=== PATIENT | male | born 1945 | race Caucasian/White ===

== ENCOUNTER 2019-01-04 17:42 | Inpatient (IN) | payer MEDICARE, OTHER ==
[2019-01-04] MEDS ORDERED: Ertapenem 1 GM in Sodium Chloride 0.9% 100 ML IV ONE (18:27)
[2019-01-04] MEDS ORDERED: Sodium Chloride 0.9% 1,000 ML IV SCH (18:30)
--- NOTE | 2019-01-04 18:33 | EDM.PDOC ---
ED HPI GENERAL MEDICAL PROBLEM - General Chief Complaint: Skin Complaint Stated Complaint: CELULITIS Time Seen by Provider: 01/04/19 18:15 Source of Information: Reports: Patient, Family History Limitations: Reports: No Limitations - History of Present Illness INITIAL COMMENTS - FREE TEXT/NARRATIVE: 73-year-old male arrives to the emergency room with a very erythematous, mildly painful weeping cellulitis of his left lower leg. He believes this started 48- 72 hours ago when he bumped his leg. He is diabetic. His glucose this morning was 45, he has not checked it since. He is running a temperature of 100.6, they went to the [facility] yesterday and on the way back he was very chilled and needed "2 " coats. He went into the [facility] and they sent him to the emergency room. He is not currently on an antibiotic. He has had problems with bilateral lower extremity edema for the past several weeks. He denies any other symptoms such as shortness of breath, chest pain, palpitations, abdominal pain, nausea or vomiting or diarrhea. Onset: Gradual Duration: Day(s): (3 days) Location: Reports: Lower Extremity, Left Associated Symptoms: Reports: Fever/Chills Left Leg Pain Score (Numeric/FACES): 6 - Related Data Allergies Allergy/AdvReac Type Severity Reaction Status Date / Time No Known Allergies Allergy Verified 01/04/19 18:02 Home Meds: Home Meds Aspirin [Ecotrin EC] 81 mg PO DAILY 01/04/19 [History] Cholestyramine/Aspartame [Prevalite Powder] 4 gm PO BID 01/04/19 [History] Dulaglutide [Trulicity] 1.5 mg SQ WEEKLY 01/04/19 [History] Fluticasone Propionate [Flonase] 16 gm NS ASDIRECTED 01/04/19 [History] Insulin Aspart [NovoLOG] 1 dose SQ TID 01/04/19 [History] Insulin Degludec [Tresiba Flextouch U-100] 55 unit SQ DAILY 01/04/19 [History] Lisinopril 10 mg PO DAILY 01/04/19 [History] Propranolol [Inderal LA 24 Hr] 60 mg PO DAILY 01/04/19 [History] Simvastatin [Zocor] 20 mg PO BEDTIME 01/04/19 [History] glipiZIDE [Glucotrol] 15 mg PO DAILY 01/04/19 [History] metFORMIN [Glucophage] 1,000 mg PO BIDMEALS 01/04/19 [History] Past Medical History HEENT History: Reports: Cataract Cardiovascular History: Reports: High Cholesterol, Hypertension Gastrointestinal History: Reports: Cholelithiasis Endocrine/Metabolic History: Reports: Diabetes, Type II Oncologic (Cancer) History: Reports: Colon Dermatologic History: Reports: Cellulitis - Past Surgical History HEENT Surgical History: Reports: Cataract Surgery GI Surgical History: Reports: Appendectomy, Cholecystectomy, Colon, Hernia Repair/Other Other GI Surgeries/Procedures: 18 inches large colon Musculoskeletal Surgical History: Reports: Hip Replacement Other Musculoskeletal Surgeries/Procedures:: right Social & Family History - Tobacco Use Smoking Status *Q: Former Smoker Used Tobacco, but Quit: Yes Month/Year Tobacco Last Used: 40 years - Caffeine Use Caffeine Use: Reports: Coffee - Recreational Drug Use Recreational Drug Use: No ED ROS GENERAL - Review of Systems Review Of Systems: See Below Constitutional: Reports: Fever, Chills. Denies: Decreased Appetite HEENT: Reports: No Symptoms Respiratory: Denies: Shortness of Breath Cardiovascular: Denies: Chest Pain GI/Abdominal: Denies: Abdominal Pain, Nausea, Vomiting : Reports: No Symptoms Neurological: Denies: Paresthesia Psychiatric: Reports: No Symptoms ED EXAM, SKIN/RASH Exam: See Below Exam Limited By: No Limitations General Appearance: Alert, No Apparent Distress, Other (Patient is chilled and uncomfortable but not distressed) Eye Exam: Bilateral Eye: EOMI (No jaundice) Head: Atraumatic Respiratory/Chest: No Respiratory Distress, Lungs Clear Cardiovascular: Regular Rate, Rhythm, Tachycardia GI/Abdominal: Soft, Non-Tender Extremities: Other (Patient is pitting edema in both lower extremities from the knee down. The left leg has extensive significant erythema with distortion of the surface of the skin, blistering, and weeping with some oozing of purulent material. There is no significant traumatic findings such as a laceration or abrasion. The erythema extends down to the foot, up to the knee and slightly on the medial aspect of the left thigh.) Psychiatric: Normal Affect, Normal Mood Course - Vital Signs Last Recorded V/S: Last Vital Signs Temp 100.8 F H 01/04/19 18:59 Pulse 100 01/04/19 18:59 Resp 18 01/04/19 18:59 BP 180/76 H 01/04/19 18:59 Pulse Ox 97 01/04/19 18:59 - Orders/Labs/Meds Orders: Active Orders 24 hr Category Date Time Status CULTURE BLOOD [BC] Urgent Lab 01/04/19 18:30 Received CULTURE BLOOD [BC] Urgent Lab 01/04/19 18:35 Received CULTURE WOUND + SMEAR [RM] Stat Lab 01/04/19 18:30 Results Blood Culture x2 Reflex Set [OM.PC] Urgent Oth 01/04/19 18:26 Ordered Medication Orders Acetaminophen (Tylenol) 650 mg PO Q4H PRN PRN Reason: Pain (Mild 1-3)/fever Aspirin (Halfprin) 81 mg PO DAILY [facility] Enoxaparin Sodium (Lovenox) 40 mg SUBCUT DAILY [facility] Hydroxyzine HCl (Atarax) 25 mg PO Q6H PRN PRN Reason: Itching Piperacillin Sod/Tazobactam (Sod 3.375 gm/ Sodium Chloride) 50 mls @ 100 mls/ hr IV Q6H [facility] Sodium Chloride (Normal Saline) 1,000 mls @ 125 mls/hr IV ASDIRECTED [facility] Last Admin: 01/04/19 22:04 Dose: 125 mls/hr Vancomycin HCl 1.5 gm/ Sodium (Chloride) 250 mls @ 150 mls/hr IV Q12H [facility] Insulin Human Lispro (Humalog) 5 unit SUBCUT TIDMEALS [facility] Insulin Human Lispro (Humalog) 0 unit SUBCUT QIDACANDBED [facility]; Protocol Lactobacillus Rhamnosus (Culturelle) 1 cap PO BID [facility] Last Admin: 01/04/19 20:51 Dose: 1 cap Lisinopril (Prinivil) 10 mg PO DAILY [facility] Lorazepam (Ativan) 0.5 mg IVPUSH Q4H PRN PRN Reason: Nausea/Vomiting Magnesium Hydroxide (Milk Of Magnesia) 30 ml PO Q12H PRN PRN Reason: Constipation Melatonin (Melatonin) 9 mg PO BEDTIME PRN PRN Reason: Sleep Metformin HCl (Glucophage) 1,000 mg PO BIDMEALS [facility] Non-Formulary Medication (Cholestyramine/Aspartame [Prevalite Powder]) 4 gm PO BID [facility] Ondansetron HCl (Zofran Odt) 4 mg PO Q6H PRN PRN Reason: Nausea able to take PO Ondansetron HCl (Zofran) 4 mg IV Q6H PRN PRN Reason: Nausea/Vomiting Propranolol HCl (Inderal La) 60 mg PO DAILY [facility] Senna/Docusate Sodium (Senna Plus) 1 tab PO BID PRN PRN Reason: Constipation Simvastatin (Zocor) 20 mg PO BEDTIME [facility] Last Admin: 01/04/19 20:51 Dose: 20 mg Labs: Laboratory Tests 01/04/19 01/04/19 01/04/19 Range/Units 18:25 18:25 18:26 WBC 6.7 (4.5-11.0) K/uL RBC 3.22 L (4.30-5.90) M/uL Hgb 10.2 L (12.0-15.0) g/dL Hct 32.2 L (40.0-54.0) % MCV 100 H (80-98) fL MCH 32 H (27-31) pg MCHC 32 (32-36) % Plt Count 93 L (150-400) K/uL Neut % (Auto) 73 H (36-66) % Lymph % (Auto) 8 L (24-44) % [place] % (Auto) 19 H (2-6) % Eos % (Auto) 1 L (2-4) % Baso % (Auto) 0 (0-1) % Sodium 133 L (140-148) mmol/L Potassium 4.6 (3.6-5.2) mmol/L Chloride 100 (100-108) mmol/L Carbon Dioxide 23 (21-32) mmol/L Anion Gap 14.6 H (5.0-14.0) mmol/L BUN 16 (7-18) mg/dL Creatinine 1.0 (0.8-1.3) mg/dL Est Cr Clr Drug Dosing 72.16 mL/min Estimated GFR (MDRD) > 60 (>60) Glucose 63 L (74-106) mg/dL Lactic Acid 1.3 (0.4-2.0) mmol/L Calcium 8.6 (8.5-10.1) mg/dL Total Bilirubin 1.5 H (0.2-1.0) mg/dL AST 79 H (15-37) U/L ALT 57 (12-78) U/L Alkaline Phosphatase 252 H (46-116) U/L Total Protein 6.8 (6.4-8.2) g/dL Albumin 2.6 L (3.4-5.0) g/dL Globulin 4.2 H (2.3-3.5) g/dL Albumin/Globulin Ratio 0.6 L (1.2-2.2) Meds: Medications Generic Name Dose Route Start Last Admin Trade Name Freq PRN Reason Stop Dose Admin Acetaminophen 650 mg 01/04/19 20:23 Tylenol PO Q4H PRN Pain (Mild 1-3)/fever Aspirin 81 mg 01/05/19 09:00 Halfprin PO DAILY [facility] Enoxaparin Sodium 40 mg 01/05/19 09:00 Lovenox SUBCUT DAILY [facility] Hydroxyzine HCl 25 mg 01/04/19 20:23 Atarax PO Q6H PRN Itching Piperacillin Sod/Tazobactam 50 mls @ 100 mls/hr 01/05/19 19:00 Sod 3.375 gm/ Sodium Chloride IV Q6H [facility] Sodium Chloride 1,000 mls @ 125 mls/hr 01/04/19 20:23 01/04/19 22:04 Normal Saline IV 125 mls/hr ASDIRECTED [facility] Administration Vancomycin HCl 1.5 gm/ Sodium 250 mls @ 150 mls/hr 01/05/19 08:00 Chloride IV Q12H [facility] Insulin Human Lispro 5 unit 01/05/19 08:00 Humalog SUBCUT TIDMEALS [facility] Insulin Human Lispro 0 unit 01/04/19 20:23 Humalog SUBCUT QIDACANDBED [facility] Protocol Lactobacillus Rhamnosus 1 cap 01/04/19 21:00 01/04/19 20:51 Culturelle PO 1 cap BID [facility] Administration Lisinopril 10 mg 01/05/19 09:00 Prinivil PO DAILY [facility] Lorazepam 0.5 mg 01/04/19 20:23 Ativan IVPUSH Q4H PRN Nausea/Vomiting Magnesium Hydroxide 30 ml 01/04/19 20:23 Milk Of Magnesia PO Q12H PRN Constipation Melatonin 9 mg 01/04/19 20:23 Melatonin PO BEDTIME PRN Sleep Metformin HCl 1,000 mg 01/05/19 08:00 Glucophage PO BIDMEALS [facility] Non-Formulary Medication 4 gm 01/04/19 21:00 Cholestyramine/Aspartame [Prevalite Powder] PO BID [facility] Ondansetron HCl 4 mg 01/04/19 20:23 Zofran Odt PO Q6H PRN Nausea able to take PO Ondansetron HCl 4 mg 01/04/19 20:23 Zofran IV Q6H PRN Nausea/Vomiting Propranolol HCl 60 mg 01/05/19 09:00 Inderal La PO DAILY [facility] Senna/Docusate Sodium 1 tab 01/04/19 20:23 Senna Plus PO BID PRN Constipation Simvastatin 20 mg 01/04/19 21:00 01/04/19 20:51 Zocor PO 20 mg BEDTIME [facility] Administration Discontinued Medications Generic Name Dose Route Start Last Admin Trade Name Freq PRN Reason Stop Dose Admin Ertapenem 1 gm/ Sodium 100 mls @ 200 mls/hr 01/04/19 18:27 01/04/19 20:50 Chloride IV 01/04/19 18:56 200 mls/hr ONETIME ONE Administration Sodium Chloride 1,000 mls @ 500 mls/hr 01/04/19 18:30 01/04/19 18:55 Normal Saline IV 500 mls/hr ASDIRECTED [facility] Administration Vancomycin HCl 1 gm/ Sodium 250 mls @ 150 mls/hr 01/04/19 18:27 01/04/19 18: 56 Chloride IV 01/04/19 20:06 150 mls/hr ONETIME ONE Administration Vancomycin HCl 1 gm/ Sodium 250 mls @ 150 mls/hr 01/04/19 19:31 Chloride IV 01/04/19 21:10 ONETIME ONE - Re-Assessments/Exams Free Text/Narrative Re-Assessment/Exam: 01/04/19 18:35 An IV was started, normal saline at 500 mL an hour was started. Patient will be treated for significant left lower leg cellulitis with possible early sepsis. Blood cultures 2 obtained, CBC CMP and lactic acid. After blood cultures, 1 g of Invanz and 1 g of vancomycin will be started. He'll likely need hospitalization by the hospitalist service. Departure - Departure Time of Disposition: 20:07 Disposition: Admitted As Inpatient 68 Clinical Impression: Cellulitis and abscess of left leg - Discharge Information - My Orders Last 24 Hours: My Active Orders 01/04/19 18:26 Blood Culture x2 Reflex Set [OM.PC] Urgent 01/04/19 18:30 CULTURE BLOOD [BC] Urgent CULTURE WOUND + SMEAR [RM] Stat 01/04/19 18:35 CULTURE BLOOD [BC] Urgent - Assessment/Plan Last 24 Hours: My Active Orders 01/04/19 18:26 Blood Culture x2 Reflex Set [OM.PC] Urgent 01/04/19 18:30 CULTURE BLOOD [BC] Urgent CULTURE WOUND + SMEAR [RM] Stat 01/04/19 18:35 CULTURE BLOOD [BC] Urgent
--- NOTE | 2019-01-04 19:44 | PCM.HP.2 ---
H&P History of Present Illness - General Date of Service: 01/04/19 Admit Problem/Dx: Admission Diagnosis/Problem Admission Diagnosis/Problem Cellulitis of left anterior lower leg Source of Information: Patient, Family, Provider History Limitations: Reports: No Limitations - History of Present Illness Initial Comments - Free Text/Narative: CC: This leg is bothering me HPI: Gabe presents to the emergency room today with left lower extremity swelling, redness and drainage. He thinks he bumped his anterior may a couple of days ago but has not had any significant pain. Yesterday morning he noticed that his left leg was a little swollen and slightly red in the morning but did not pay attention to it throughout the day. He has not had any pain in the leg. He thought it was a little bit more swollen and red this morning. This afternoon it was itchy so he had some look at and they told him to get checked out right away with concerns for cellulitis. He reports itchy skin throughout the lower leg especially anteriorly. He does not have any numbness or tingling. He has had chills that started last night but has not measured any fevers at home. He feels weak and tired but otherwise feels okay. No complaints of nausea , shortness of breath, abdominal pain or diarrhea. He has not had any sick contacts. He has never had cellulitis before. No recent antibiotics. He does not check his blood sugars regularly but did notice that it was low this morning at 45. Workup in the emergency room revealed fairly normal labs. Physical examination revealed obvious cellulitis involving almost the entire left leg below the knee. He does have an open weeping area on the anterior may that was cultured. He has received vancomycin and ertapenem. Cultures have been obtained. He is receiving some IV fluids. He will be admitted for further management. Left Leg Pain Score (Numeric/FACES): 6 - Related Data Allergies/Adverse Reactions: Allergies Allergy/AdvReac Type Severity Reaction Status Date / Time No Known Allergies Allergy Verified 01/04/19 18:02 Home Medications: Home Meds Aspirin [Ecotrin EC] 81 mg PO DAILY 01/04/19 [History] Cholestyramine/Aspartame [Prevalite Powder] 4 gm PO BID 01/04/19 [History] Dulaglutide [Trulicity] 1.5 mg SQ WEEKLY 01/04/19 [History] Fluticasone Propionate [Flonase] 16 gm NS ASDIRECTED 01/04/19 [History] Insulin Aspart [NovoLOG] 1 dose SQ TID 01/04/19 [History] Insulin Degludec [Tresiba Flextouch U-100] 55 unit SQ DAILY 01/04/19 [History] Lisinopril 10 mg PO DAILY 01/04/19 [History] Propranolol [Inderal LA 24 Hr] 60 mg PO DAILY 01/04/19 [History] Simvastatin [Zocor] 20 mg PO BEDTIME 01/04/19 [History] glipiZIDE [Glucotrol] 15 mg PO DAILY 01/04/19 [History] metFORMIN [Glucophage] 1,000 mg PO BIDMEALS 01/04/19 [History] Past Medical History HEENT History: Reports: Cataract Cardiovascular History: Reports: High Cholesterol, Hypertension Gastrointestinal History: Reports: Cholelithiasis Endocrine/Metabolic History: Reports: Diabetes, Type II Oncologic (Cancer) History: Reports: Colon Dermatologic History: Reports: Cellulitis - Past Surgical History HEENT Surgical History: Reports: Cataract Surgery GI Surgical History: Reports: Appendectomy, Cholecystectomy, Colon, Hernia Repair/Other Other GI Surgeries/Procedures: 18 inches large colon Musculoskeletal Surgical History: Reports: Hip Replacement Other Musculoskeletal Surgeries/Procedures:: right Social & Family History - Family History Cardiac: Denies: CAD - Tobacco Use Smoking Status *Q: Former Smoker Used Tobacco, but Quit: Yes Month/Year Tobacco Last Used: 40 years - Caffeine Use Caffeine Use: Reports: Coffee - Recreational Drug Use Recreational Drug Use: No H&P Review of Systems - Review of Systems: Review Of Systems: See Below Free Text/Narrative: A complete 12 point review of systems was obtained. Pertinent positives and negatives are noted in the history of present illness. All other systems were reviewed and were negative except as noted. Exam - Exam Exam: See Below - Vital Signs Vital Signs: Last Vital Signs Temp 38.2 C H 01/04/19 18:59 Pulse 100 01/04/19 18:59 Resp 18 01/04/19 18:59 BP 180/76 H 01/04/19 18:59 Pulse Ox 97 01/04/19 18:59 Weight: 113.6 kg - Exam Quality Assessment: No: Supplemental Oxygen General: Alert, Oriented, Cooperative. No: Mild Distress HEENT: Conjunctiva Clear, Mucosa Moist & [place]. No: Scleral Icterus Neck: Supple, Trachea Midline. No: Lymphadenopathy Lungs: Clear to Auscultation, Normal Respiratory Effort Cardiovascular: Regular Rate, Regular Rhythm GI/Abdominal Exam: Soft, No Distention Extremities: Pedal Edema (pitting edema bilaterally to above the knee ), Increased Warmth (left lower leg from knee distally ) Skin: Warm, Dry, Rash (erythema over most of the left lower leg from the knee distally. Small open area with surrounding weeping anterior mid may. small vesicles surrounding this area ) Neuro Extensive - Mental Status: Alert, Oriented x3, Nl Response to Commands Neuro Extensive - Motor, Sensory, Reflexes: No: Dysarthria, Abnormal Motor, Tremor Psychiatric: Alert, Normal Affect - Patient Data Lab Results Last 24 hrs: Laboratory Results - last 24 hr 01/04/19 01/04/19 01/04/19 Range/Units 18:25 18:25 18:26 WBC 6.7 (4.5-11.0) K/uL RBC 3.22 L (4.30-5.90) M/uL Hgb 10.2 L (12.0-15.0) g/dL Hct 32.2 L (40.0-54.0) % MCV 100 H (80-98) fL MCH 32 H (27-31) pg MCHC 32 (32-36) % Plt Count 93 L (150-400) K/uL Neut % (Auto) 73 H (36-66) % Lymph % (Auto) 8 L (24-44) % [place] % (Auto) 19 H (2-6) % Eos % (Auto) 1 L (2-4) % Baso % (Auto) 0 (0-1) % Sodium 133 L (140-148) mmol/L Potassium 4.6 (3.6-5.2) mmol/L Chloride 100 (100-108) mmol/L Carbon Dioxide 23 (21-32) mmol/L Anion Gap 14.6 H (5.0-14.0) mmol/L BUN 16 (7-18) mg/dL Creatinine 1.0 (0.8-1.3) mg/dL Est Cr Clr Drug Dosing 72.16 mL/min Estimated GFR (MDRD) > 60 (>60) Glucose 63 L (74-106) mg/dL Lactic Acid 1.3 (0.4-2.0) mmol/L Calcium 8.6 (8.5-10.1) mg/dL Total Bilirubin 1.5 H (0.2-1.0) mg/dL AST 79 H (15-37) U/L ALT 57 (12-78) U/L Alkaline Phosphatase 252 H (46-116) U/L Total Protein 6.8 (6.4-8.2) g/dL Albumin 2.6 L (3.4-5.0) g/dL Globulin 4.2 H (2.3-3.5) g/dL Albumin/Globulin Ratio 0.6 L (1.2-2.2) Result Diagrams: 01/04/19 18:25 01/04/19 18:25 Quoc Results Last 24 hrs: Microbiology 01/04/19 18:30 Gram Stain - Final Leg, Left *Q Meaningful Use (ADM) - VTE *Q VTE Mechanical Contraindications *Q: Bilateral Lower Edema - VTE Risk Assess *Q Each Risk Factor Represents 1 Point: Swollen Legs, Current, Obesity ( BMI > 25 kg/m2) Total Score 1 Point Risk Factors: 2 Each Risk Factor Represents 2 Points: Age 60 - 74 Years, Malignancy (present or previous) Total Score 2 Point Risk Factors: 4 Each Risk Factor Represents 3 Points: None Total Score 3 Point Risk Factors: 0 Each Risk Factor Represents 5 Points: None Total Score 5 Point Risk Factors: 0 Venous Thromboembolism Risk Factor Score *Q: 6 - Problem List (1) Cellulitis of left lower extremity SNOMED Code(s): 953288106 ICD Code: L03.116 - CELLULITIS OF LEFT LOWER LIMB Status: Acute Current Visit: Yes (2) Insulin dependent diabetes mellitus SNOMED Code(s): 68528918 ICD Code: E11.9 - TYPE 2 DIABETES MELLITUS WITHOUT COMPLICATIONS; Z79.4 - WELDER EXPLOSION (CURRENT) USE OF INSULIN Status: Chronic Current Visit: Yes (3) Hypertension SNOMED Code(s): 17949491 ICD Code: I10 - ESSENTIAL (PRIMARY) HYPERTENSION Status: Chronic Current Visit: Yes Qualifiers: Hypertension type: essential hypertension Qualified Code(s): I10 - Essential (primary) hypertension (4) Colon cancer SNOMED Code(s): 582729908 ICD Code: C18.9 - MALIGNANT NEOPLASM OF COLON, UNSPECIFIED Status: Chronic Current Visit: Yes Qualifiers: Colon location: unspecified part of colon Qualified Code(s): C18.9 - Malignant neoplasm of colon, unspecified Problem List Initiated/Reviewed/Updated: Yes Orders Last 24hrs: Active Orders 24 hr Category Date Time Status Patient Status Manage Transfer [TRANSFER] Routine ADT 01/04/19 19:32 Active CULTURE BLOOD [BC] Urgent Lab 01/04/19 18:30 Received CULTURE BLOOD [BC] Urgent Lab 01/04/19 18:35 Received CULTURE WOUND + SMEAR [RM] Stat Lab 01/04/19 18:30 Results Sodium Chloride 0.9% [Normal Saline] 1,000 ml Med 01/04/19 18:30 Active IV ASDIRECTED Vancomycin 1 gm Med 01/04/19 18:27 Active Sodium Chloride 0.9% [Normal Saline] 250 ml IV ONETIME Vancomycin 1 gm Med 01/04/19 19:31 Active Sodium Chloride 0.9% [Normal Saline] 250 ml IV ONETIME Blood Culture x2 Reflex Set [OM.PC] Urgent Oth 01/04/19 18:26 Ordered Resuscitation Status Routine Resus Stat 01/04/19 19:34 Ordered Medication Orders Sodium Chloride (Normal Saline) 1,000 mls @ 500 mls/hr IV ASDIRECTED [facility] Last Admin: 01/04/19 18:55 Dose: 500 mls/hr Vancomycin HCl 1 gm/ Sodium (Chloride) 250 mls @ 150 mls/hr IV ONETIME ONE Stop: 01/04/19 20:06 Last Admin: 01/04/19 18:56 Dose: 150 mls/hr Vancomycin HCl 1 gm/ Sodium (Chloride) 250 mls @ 150 mls/hr IV ONETIME ONE Stop: 01/04/19 21:10 Assessment/Plan Comment:: ASSESSMENT AND PLAN - Left lower extremity cellulitis - he does not meet criteria for sepsis. Fairly rapid spread over the past 36 hours. Immune compromised because of recent steroids, colon cancer treatment and diabetes. No recent antibiotics. Fairly impressive infection. He has received broad-spectrum antibiotics and cultures have been obtained. -Continue vancomycin -Start Pip/Tazo tomorrow night -Follow-up cultures -Pain control -Once heart rate has stabilized initiate diuresis to help with lower extremity edema Insulin-dependent diabetes mellitus - blood sugar was low this morning and remains low tonight. Patient is asymptomatic at 67. -Hold long-acting insulin -Mealtime insulin 5 units -Metformin -Reassess additional management tomorrow Colon cancer - last chemotherapy was about one month ago. Recently told by the oncologist that he is cancer free at this time. Essential hypertension - continue home medications Maintenance issues - - DVT prophylaxis - enoxaparin - GI prophylaxis - not indicated - Nutrition - diabetic - Brush catheter - not indicated CODE STATUS - full code Admission justification - This patient will be admitted for inpatient services and is medically appropriate meeting medical necessity for inpatient admission as outlined in my documentation. I reasonably expect the patient will require inpatient services that span a period time over 2 midnights. I reasonably expect this patient to be discharged or transferred within 96 hours after admission to the [facility]. Disposition - I would anticipate discharge home after the hospital stay Primary care physician - Sacha Cortez M.D. - Mortality Measure Prognosis:: Good
[2019-01-04] MEDS ORDERED: Ondansetron 4 MG/2 ML SDV IV PRN (20:23)
[2019-01-04] MEDS ORDERED: Magnesium Hydroxide 400 MG/5 ML Susp 30 ML Cup PO PRN (20:23)
[2019-01-04] MEDS ORDERED: Ondansetron 4 MG Tab.DIS PO PRN (20:23)
[2019-01-04] MEDS ORDERED: Melatonin 3 MG Tab PO PRN (20:23)
[2019-01-04] MEDS ORDERED: LORazepam 2 MG/ML SDV IVPUSH PRN (20:23)
[2019-01-04] MEDS ORDERED: hydrOXYzine HCl 25 MG Tab PO PRN (20:23)
[2019-01-04] MEDS: Simvastatin 20 MG Tab PO SCH (20:51)
[2019-01-04] MEDS: Lactobacillus Rhamnosus GG (Probiotic) Cap PO SCH (20:51)
[2019-01-04] MEDS ORDERED: CHOLESTYRAMINE PO SCH (21:00)
[2019-01-04] MEDS ORDERED: ASPARTAME PO SCH (21:00)
[2019-01-04] MEDS: Sodium Chloride 0.9% 1,000 ML IV SCH (22:04)
[2019-01-04] MEDS: Insulin Lispro 100 Unit/ML 3 ML KwikPen SUBCUT SCH (22:14)
[2019-01-04] MEDS: Acetaminophen 325 MG Tab PO PRN (22:22)
[2019-01-05] MEDS: Sodium Chloride 0.9% 1,000 ML IV SCH (06:37)
[2019-01-05] MEDS: Insulin Lispro 100 Unit/ML 3 ML KwikPen SUBCUT SCH ×7 (07:44→21:04)
[2019-01-05] MEDS: metFORMIN 500 MG Tab PO SCH ×2 (08:35→17:29)
[2019-01-05] MEDS: Lactobacillus Rhamnosus GG (Probiotic) Cap PO SCH ×2 (08:35→20:12)
[2019-01-05] MEDS: Lisinopril 10 MG Tab PO SCH (08:35)
[2019-01-05] MEDS: Aspirin 81 MG Tab.EC PO SCH (08:36)
[2019-01-05] MEDS: Propranolol 60 MG Cap.ER PO SCH (08:36)
[2019-01-05] MEDS ORDERED: Enoxaparin 40 MG/0.4 ML Syringe SUBCUT SCH (09:00)
--- NOTE | 2019-01-05 10:33 | PCM.PN ---
- General Info Date of Service: 01/05/19 Subjective Update: No acute events overnight following admission. No pain in his left leg. No nausea or vomiting. Leg looks much better today with less swelling and less erythema. Right leg swelling also much less today. Cultures are negative so far. Blood sugars remain on the low side despite drastic reductions in his diabetes medications. Functional Status: Reports: Pain Controlled, Tolerating Diet - Review of Systems General: Denies: Fever Musculoskeletal: Reports: Leg Pain - Patient Data Vitals - Most Recent: Last Vital Signs Temp 36.9 C 01/05/19 07:00 Pulse 84 01/05/19 07:00 Resp 16 01/05/19 07:00 BP 117/64 01/05/19 08:35 Pulse Ox 96 01/05/19 07:00 Weight - Most Recent: 114.577 kg I&O - Last 24 Hours: Intake & Output 01/04/19 01/05/19 01/05/19 22:59 06:59 14:59 Intake Total 360 1166 620 Output Total 500 1000 Balance 360 666 -380 Lab Results Last 24 Hours: Laboratory Results - last 24 hr 01/04/19 01/04/19 01/04/19 Range/Units 18:25 18:25 18:26 WBC 6.7 (4.5-11.0) K/uL RBC 3.22 L (4.30-5.90) M/uL Hgb 10.2 L (12.0-15.0) g/dL Hct 32.2 L (40.0-54.0) % MCV 100 H (80-98) fL MCH 32 H (27-31) pg MCHC 32 (32-36) % Plt Count 93 L (150-400) K/uL Neut % (Auto) 73 H (36-66) % Lymph % (Auto) 8 L (24-44) % Charlton % (Auto) 19 H (2-6) % Eos % (Auto) 1 L (2-4) % Baso % (Auto) 0 (0-1) % Sodium 133 L (140-148) mmol/L Potassium 4.6 (3.6-5.2) mmol/L Chloride 100 (100-108) mmol/L Carbon Dioxide 23 (21-32) mmol/L Anion Gap 14.6 H (5.0-14.0) mmol/L BUN 16 (7-18) mg/dL Creatinine 1.0 (0.8-1.3) mg/dL Est Cr Clr Drug Dosing 72.16 mL/min Estimated GFR (MDRD) > 60 (>60) Glucose 63 L (74-106) mg/dL Lactic Acid 1.3 (0.4-2.0) mmol/L Calcium 8.6 (8.5-10.1) mg/dL Total Bilirubin 1.5 H (0.2-1.0) mg/dL AST 79 H (15-37) U/L ALT 57 (12-78) U/L Alkaline Phosphatase 252 H (46-116) U/L Total Protein 6.8 (6.4-8.2) g/dL Albumin 2.6 L (3.4-5.0) g/dL Globulin 4.2 H (2.3-3.5) g/dL Albumin/Globulin Ratio 0.6 L (1.2-2.2) 01/05/19 01/05/19 Range/Units 04:15 04:15 WBC 4.4 L (4.5-11.0) K/uL RBC 3.09 L (4.30-5.90) M/uL Hgb 9.8 L (12.0-15.0) g/dL Hct 31.2 L (40.0-54.0) % MCV 101 H (80-98) fL MCH 32 H (27-31) pg MCHC 31 L (32-36) % Plt Count 91 L (150-400) K/uL Neut % (Auto) (36-66) % Lymph % (Auto) (24-44) % Charlton % (Auto) (2-6) % Eos % (Auto) (2-4) % Baso % (Auto) (0-1) % Sodium 137 L (140-148) mmol/L Potassium 4.3 (3.6-5.2) mmol/L Chloride 104 (100-108) mmol/L Carbon Dioxide 26 (21-32) mmol/L Anion Gap 11.3 (5.0-14.0) mmol/L BUN 15 (7-18) mg/dL Creatinine 1.0 (0.8-1.3) mg/dL Est Cr Clr Drug Dosing 72.16 mL/min Estimated GFR (MDRD) > 60 (>60) Glucose 78 (74-106) mg/dL Lactic Acid (0.4-2.0) mmol/L Calcium 8.2 L (8.5-10.1) mg/dL Total Bilirubin (0.2-1.0) mg/dL AST (15-37) U/L ALT (12-78) U/L Alkaline Phosphatase (46-116) U/L Total Protein (6.4-8.2) g/dL Albumin (3.4-5.0) g/dL Globulin (2.3-3.5) g/dL Albumin/Globulin Ratio (1.2-2.2) [facility]oc Results Last 24 Hours: Microbiology 01/04/19 18:30 Gram Stain - Final Leg, Left Med Orders - Current: Current Medications Acetaminophen (Tylenol) 650 mg PO Q4H PRN PRN Reason: Pain (Mild 1-3)/fever Last Admin: 01/04/19 22:22 Dose: 650 mg Aspirin (Halfprin) 81 mg PO DAILY [facility] Last Admin: 01/05/19 08:36 Dose: 81 mg Fluticasone Propionate (Flonase) 0 gm NASBOTH DAILY [facility] Hydroxyzine HCl (Atarax) 25 mg PO Q6H PRN PRN Reason: Itching Vancomycin HCl 1.5 gm/ Sodium (Chloride) 250 mls @ 150 mls/hr IV Q12H [facility] Last Admin: 01/05/19 08:34 Dose: 150 mls/hr Piperacillin/Tazobactam/ (Dextrose 3.375 gm/ Premix) 50 mls @ 100 mls/hr IV Q6H [facility] Sodium Chloride (Normal Saline) 1,000 mls @ 25 mls/hr IV ASDIRECTED [facility] Insulin Human Lispro (Humalog) 5 unit SUBCUT TIDMEALS [facility] Last Admin: 01/05/19 08:38 Dose: 5 units Insulin Human Lispro (Humalog) 0 unit SUBCUT QIDACANDBED [facility]; Protocol Last Admin: 01/05/19 07:44 Dose: Not Given Lactobacillus Rhamnosus (Culturelle) 1 cap PO BID [facility] Last Admin: 01/05/19 08:35 Dose: 1 cap Lisinopril (Prinivil) 10 mg PO DAILY [facility] Last Admin: 01/05/19 08:35 Dose: 10 mg Lorazepam (Ativan) 0.5 mg IVPUSH Q4H PRN PRN Reason: Nausea/Vomiting Magnesium Hydroxide (Milk Of Magnesia) 30 ml PO Q12H PRN PRN Reason: Constipation Melatonin (Melatonin) 9 mg PO BEDTIME PRN PRN Reason: Sleep Metformin HCl (Glucophage) 1,000 [facility] Last Admin: 01/05/19 08:35 Dose: 1,000 mg Non-Formulary Medication (Cholestyramine/Aspartame [Prevalite Powder]) 4 gm PO BID [facility] Ondansetron HCl (Zofran Odt) 4 mg PO Q6H PRN PRN Reason: Nausea able to take PO Ondansetron HCl (Zofran) 4 mg IV Q6H PRN PRN Reason: Nausea/Vomiting Propranolol HCl (Inderal La) 60 mg PO DAILY [facility] Last Admin: 01/05/19 08:36 Dose: 60 mg Senna/Docusate Sodium (Senna Plus) 1 tab PO BID PRN PRN Reason: Constipation Simvastatin (Zocor) 20 mg PO BEDTIME [facility] Last Admin: 01/04/19 20:51 Dose: 20 mg Discontinued Medications Enoxaparin Sodium (Lovenox) 40 mg SUBCUT DAILY [facility] Ertapenem 1 gm/ Sodium (Chloride) 100 mls @ 200 mls/hr IV ONETIME ONE Stop: 01/04/19 18:56 Last Admin: 01/04/19 20:50 Dose: 200 mls/hr Sodium Chloride (Normal Saline) 1,000 mls @ 500 mls/hr IV ASDIRECTED [facility] Last Admin: 01/04/19 18:55 Dose: 500 mls/hr Vancomycin HCl 1 gm/ Sodium (Chloride) 250 mls @ 150 mls/hr IV ONETIME ONE Stop: 01/04/19 20:06 Last Admin: 01/04/19 18:56 Dose: 150 mls/hr Vancomycin HCl 1 gm/ Sodium (Chloride) 250 mls @ 150 mls/hr IV ONETIME ONE Stop: 01/04/19 21:10 Last Admin: 01/04/19 22:15 Dose: 150 mls/hr Piperacillin Sod/Tazobactam (Sod 3.375 gm/ Sodium Chloride) 50 mls @ 100 mls/ hr IV Q6H [facility] Sodium Chloride (Normal Saline) 1,000 mls @ 125 mls/hr IV ASDIRECTED [facility] Last Admin: 01/05/19 06:37 Dose: 125 mls/hr - Exam Quality Assessment: No: Supplemental Oxygen General: Alert, Oriented, Cooperative, No Acute Distress Lungs: Normal Respiratory Effort Extremities: Pedal Edema, Increased Warmth (left lower leg) Skin: Warm, Dry, Rash (erythema and dried scab left lower leg ) Psy/Mental Status: Alert, Normal Affect - Problem List & Annotations (1) Cellulitis of left lower extremity SNOMED Code(s): 033942396 Code(s): L03.116 - CELLULITIS OF LEFT LOWER LIMB Status: Acute Current Visit: Yes (2) Insulin dependent diabetes mellitus SNOMED Code(s): 01072020 Code(s): E11.9 - TYPE 2 DIABETES MELLITUS WITHOUT COMPLICATIONS; Z79.4 - RETIREMENT (CURRENT) USE OF INSULIN Status: Chronic Current Visit: Yes (3) Hypertension SNOMED Code(s): 00273399 Code(s): I10 - ESSENTIAL (PRIMARY) HYPERTENSION Status: Chronic Current Visit: Yes Qualifiers: Hypertension type: essential hypertension Qualified Code(s): I10 - Essential (primary) hypertension (4) Colon cancer SNOMED Code(s): 525540093 Code(s): C18.9 - MALIGNANT NEOPLASM OF COLON, UNSPECIFIED Status: Chronic Current Visit: Yes Qualifiers: Colon location: unspecified part of colon Qualified Code(s): C18.9 - Malignant neoplasm of colon, unspecified - Problem List Review Problem List Initiated/Reviewed/Updated: Yes - My Orders Last 24 Hours: My Active Orders 01/04/19 19:34 Resuscitation Status Routine 01/04/19 20:23 Patient Status [ADT] Routine Communication Order [RC] PRN Communication Order [RC] PRN Diabetes Education [RC] Click to Edit Intake and Output [RC] QSHIFT Notify Provider Vital Signs [RC] ASDIRECTED Notify Provider [RC] PRN Oxygen Therapy [RC] PRN Up With Assistance [RC] ASDIRECTED Vital Signs [RC] Q4H Acetaminophen [Tylenol] 650 mg PO Q4H PRN Docusate Sodium/Sennosides [Senna Plus] 1 tab PO BID PRN Insulin Lispro [HumaLOG] See Protocol SUBCUT QIDACANDBED LORazepam [Ativan] 0.5 mg IVPUSH Q4H PRN Magnesium Hydroxide [Milk of Magnesia] 30 ml PO Q12H PRN Melatonin 9 mg PO BEDTIME PRN Ondansetron [Zofran ODT] 4 mg PO Q6H PRN Ondansetron [Zofran] 4 mg IV Q6H PRN hydrOXYzine HCl [Atarax] 25 mg PO Q6H PRN 01/04/19 21:00 Cholestyramine/Aspartame [Prevalite Powder] 4 gm PO BID Lactobacillus Rhamnosus GG [Culturelle] 1 cap PO BID Simvastatin [Zocor] 20 mg PO BEDTIME 01/05/19 08:00 Insulin Lispro [HumaLOG] 5 unit SUBCUT TIDMEALS Vancomycin 1.5 gm Sodium Chloride 0.9% [Normal Saline] 250 ml IV Q12H metFORMIN [Glucophage] 1,000 mg PO BIDMEALS 01/05/19 09:00 Aspirin [Halfprin] 81 mg PO DAILY Lisinopril [Prinivil] 10 mg PO DAILY Propranolol [Inderal LA] 60 mg PO DAILY 01/05/19 10:00 Fluticasone Propionate [Flonase] 0 gm NASBOTH DAILY 01/05/19 10:35 Sodium Chloride 0.9% [Normal Saline] 1,000 ml IV ASDIRECTED 01/05/19 11:30 GLUCOSE POC LAB TO COLLECT [POC] QIDACANDBED 01/05/19 16:30 GLUCOSE POC LAB TO COLLECT [POC] QIDACANDBED 01/05/19 18:00 Piperacillin/Tazobactam/Dext [Zosyn in Dextrose Iso-Osmotic 3.375 GM] 3.375 gm Premix Bag 1 bag IV Q6H 01/05/19 21:00 GLUCOSE POC LAB TO COLLECT [POC] QIDACANDBED 01/06/19 05:00 BASIC METABOLIC PANEL,BMP [CHEM] Timed CBC W/O DIFF,HEMOGRAM [HEME] Timed (1) 01/06/19 07:30 GLUCOSE POC LAB TO COLLECT [POC] QIDACANDBED 01/06/19 11:30 GLUCOSE POC LAB TO COLLECT [POC] QIDACANDBED 01/06/19 16:30 GLUCOSE POC LAB TO COLLECT [POC] QIDACANDBED 01/06/19 21:00 GLUCOSE POC LAB TO COLLECT [POC] QIDACANDBED 01/07/19 07:30 GLUCOSE POC LAB TO COLLECT [POC] QIDACANDBED 01/07/19 11:30 GLUCOSE POC LAB TO COLLECT [POC] QIDACANDBED 01/07/19 16:30 GLUCOSE POC LAB TO COLLECT [POC] QIDACANDBED 01/07/19 21:00 GLUCOSE POC LAB TO COLLECT [POC] QIDACANDBED 01/08/19 07:30 GLUCOSE POC LAB TO COLLECT [POC] QIDACANDBED 01/08/19 11:30 GLUCOSE POC LAB TO COLLECT [POC] QIDACANDBED 01/08/19 16:30 GLUCOSE POC LAB TO COLLECT [POC] QIDACANDBED 01/08/19 21:00 GLUCOSE POC LAB TO COLLECT [POC] QIDACANDBED 01/09/19 07:30 GLUCOSE POC LAB TO COLLECT [POC] QIDACANDBED 01/09/19 11:30 GLUCOSE POC LAB TO COLLECT [POC] QIDACANDBED 01/09/19 16:30 GLUCOSE POC LAB TO COLLECT [POC] QIDACANDBED 01/09/19 21:00 GLUCOSE POC LAB TO COLLECT [POC] QIDACANDBED 01/10/19 07:30 GLUCOSE POC LAB TO COLLECT [POC] QIDACANDBED - Plan Plan:: ASSESSMENT AND PLAN - Left lower extremity cellulitis - excellent improvement overnight with antibiotics and some IV fluids. Swelling and redness have decreased significantly. No fevers overnight. Clinically looks better today. Cultures negative so far. -Continue vancomycin -Start Pip/Tazo tonight -Follow-up cultures -Pain control -Consider diuresis tomorrow Insulin-dependent diabetes mellitus - blood sugar still low this morning despite drastic reductions. -Continue to hold long-acting insulin -Mealtime insulin 5 units -Metformin -Reassess additional management tomorrow Colon cancer - last chemotherapy was about one month ago. Recently told by the oncologist that he is cancer free at this time. Essential hypertension - continue home medications Maintenance issues - - DVT prophylaxis - enoxaparin - GI prophylaxis - not indicated - Nutrition - diabetic Disposition - I would anticipate discharge home after the hospital stay Primary care physician - [place], [place] Wilfrido Hagen M.D.
[2019-01-05] MEDS ORDERED: Sodium Chloride 0.9% 1,000 ML IV SCH (10:35)
[2019-01-05] MEDS: Fluticasone Propionate Nasal Spray 16 GM Bottle NASBOTH SCH (11:45)
[2019-01-05] MEDS: Piperacillin/Tazobactam/Dext 3.375 GM in Premix Bag 1 BAG IV SCH (17:35)
[2019-01-05] MEDS ORDERED: Piperacillin/Tazobactam 3.375 GM in Sodium Chloride 0.9% 50 ML IV SCH (19:00)
[2019-01-05] MEDS: Cholestyramine/Sucrose Powder 4 GM Packet PO SCH (20:12)
[2019-01-05] MEDS: Simvastatin 20 MG Tab PO SCH (20:12)
[2019-01-05] MEDS: Acetaminophen 325 MG Tab PO PRN (20:22)
[2019-01-06] MEDS: Piperacillin/Tazobactam/Dext 3.375 GM in Premix Bag 1 BAG IV SCH ×2 (00:10→07:27)
[2019-01-06] MEDS: Insulin Lispro 100 Unit/ML 3 ML KwikPen SUBCUT SCH ×7 (07:47→20:46)
[2019-01-06] MEDS: metFORMIN 500 MG Tab PO SCH ×2 (07:48→18:07)
[2019-01-06] MEDS: Lactobacillus Rhamnosus GG (Probiotic) Cap PO SCH ×2 (08:56→20:24)
[2019-01-06] MEDS: Fluticasone Propionate Nasal Spray 16 GM Bottle NASBOTH SCH (08:56)
[2019-01-06] MEDS: Aspirin 81 MG Tab.EC PO SCH (08:56)
[2019-01-06] MEDS: Lisinopril 10 MG Tab PO SCH (08:56)
[2019-01-06] MEDS: Cholestyramine/Sucrose Powder 4 GM Packet PO SCH ×2 (08:57→20:24)
[2019-01-06] MEDS: Propranolol 60 MG Cap.ER PO SCH (08:57)
--- NOTE | 2019-01-06 11:30 | PCM.PN ---
- General Info Date of Service: 01/06/19 Subjective Update: There were no acute events overnight. This morning the patient was noted to have a few areas of macular rash on his inner thighs and lower abdomen. This developed around the time he was due for his next antibiotic and initially there was some concern this may be a drug reaction so the antibiotic was held. His rash has improved fairly quickly. I do not believe this represented a antibiotic reaction. His leg is looking better but still has a fair amount of erythema and mild warmth. His wound culture is growing a staph species but identification is not complete as of yet. Functional Status: Reports: Pain Controlled, Tolerating Diet - Review of Systems General: Denies: Fever Musculoskeletal: Reports: Leg Pain Skin: Reports: Rash, Other (mild patchy macules on inner thighs ) - Patient Data Vitals - Most Recent: Last Vital Signs Temp 36.2 C 01/06/19 07:40 Pulse 85 01/06/19 07:40 Resp 16 01/06/19 07:40 BP 128/47 L 01/06/19 08:56 Pulse Ox 96 01/06/19 07:40 Weight - Most Recent: 114.577 kg I&O - Last 24 Hours: Intake & Output 01/05/19 01/06/19 01/06/19 22:59 06:59 14:59 Intake Total 359 274 990 Output Total 950 1200 Balance -591 926 990 Lab Results Last 24 Hours: Laboratory Results - last 24 hr 01/06/19 01/06/19 Range/Units 04:40 04:40 WBC 4.6 (4.5-11.0) K/uL RBC 3.35 L (4.30-5.90) M/uL Hgb 10.6 L (12.0-15.0) g/dL Hct 33.4 L (40.0-54.0) % MCV 100 H (80-98) fL MCH 32 H (27-31) pg MCHC 32 (32-36) % Plt Count 96 L (150-400) K/uL Sodium 135 L (140-148) mmol/L Potassium 4.6 (3.6-5.2) mmol/L Chloride 103 (100-108) mmol/L Carbon Dioxide 25 (21-32) mmol/L Anion Gap 11.6 (5.0-14.0) mmol/L BUN 15 (7-18) mg/dL Creatinine 0.9 (0.8-1.3) mg/dL Est Cr Clr Drug Dosing 80.18 mL/min Estimated GFR (MDRD) > 60 (>60) Glucose 107 H (74-106) mg/dL Calcium 8.7 (8.5-10.1) mg/dL [facility] Results Last 24 Hours: Microbiology 01/04/19 18:30 Gram Stain - Final Leg, Left Wound Culture - Preliminary 01/04/19 18:30 Aerobic Blood Culture - Preliminary Blood - Venous - Iv Start NO GROWTH AFTER 1 DAY Anaerobic Blood Culture - Preliminary NO GROWTH AFTER 1 DAY 01/04/19 18:35 Aerobic Blood Culture - Preliminary Blood - Venous - Iv Start NO GROWTH AFTER 1 DAY Anaerobic Blood Culture - Preliminary NO GROWTH AFTER 1 DAY Med Orders - Current: Current Medications Acetaminophen (Tylenol) 650 mg PO Q4H PRN PRN Reason: Pain (Mild 1-3)/fever Last Admin: 01/05/19 20:22 Dose: 650 mg Aspirin (Halfprin) 81 mg PO DAILY [facility] Last Admin: 01/06/19 08:56 Dose: 81 mg Cholestyramine Resin (Cholestyramine Packet) 4 gm PO BID [facility] Last Admin: 01/06/19 08:57 Dose: 4 gm Fluticasone Propionate (Flonase) 0 gm NASBOTH DAILY [facility] Last Admin: 01/06/19 08:56 Dose: 1 spray Hydroxyzine HCl (Atarax) 25 mg PO Q6H PRN PRN Reason: Itching Last Admin: 01/06/19 05:07 Dose: 25 mg Vancomycin HCl 1.5 gm/ Sodium (Chloride) 250 mls @ 150 mls/hr IV Q12H [facility] Last Admin: 01/06/19 08:57 Dose: 150 mls/hr Insulin Human Lispro (Humalog) 5 unit SUBCUT TIDMEALS [facility] Last Admin: 01/06/19 07:49 Dose: 5 units Insulin Human Lispro (Humalog) 0 unit SUBCUT QIDACANDBED [facility]; Protocol Last Admin: 01/06/19 07:47 Dose: Not Given Lactobacillus Rhamnosus (Culturelle) 1 cap PO BID [facility] Last Admin: 01/06/19 08:56 Dose: 1 cap Lisinopril (Prinivil) 10 mg PO DAILY [facility] Last Admin: 01/06/19 08:56 Dose: 10 mg Lorazepam (Ativan) 0.5 mg IVPUSH Q4H PRN PRN Reason: Nausea/Vomiting Magnesium Hydroxide (Milk Of Magnesia) 30 ml PO Q12H PRN PRN Reason: Constipation Melatonin (Melatonin) 9 mg PO BEDTIME PRN PRN Reason: Sleep Metformin HCl (Glucophage) 1,000 mg PO BIDMEALS [facility] Last Admin: 01/06/19 07:48 Dose: 1,000 mg Ondansetron HCl (Zofran Odt) 4 mg PO Q6H PRN PRN Reason: Nausea able to take PO Ondansetron HCl (Zofran) 4 mg IV Q6H PRN PRN Reason: Nausea/Vomiting Propranolol HCl (Inderal La) 60 mg PO DAILY [facility] Last Admin: 01/06/19 08:57 Dose: 60 mg Senna/Docusate Sodium (Senna Plus) 1 tab PO BID PRN PRN Reason: Constipation Simvastatin (Zocor) 20 mg PO BEDTIME [facility] Last Admin: 01/05/19 20:12 Dose: 20 mg Discontinued Medications Enoxaparin Sodium (Lovenox) 40 mg SUBCUT DAILY [facility] Last Admin: 01/05/19 10:56 Dose: Not Given Ertapenem 1 gm/ Sodium (Chloride) 100 mls @ 200 mls/hr IV ONETIME ONE Stop: 01/04/19 18:56 Last Admin: 01/04/19 20:50 Dose: 200 mls/hr Sodium Chloride (Normal Saline) 1,000 mls @ 500 mls/hr IV ASDIRECTED [facility] Last Admin: 01/04/19 18:55 Dose: 500 mls/hr Vancomycin HCl 1 gm/ Sodium (Chloride) 250 mls @ 150 mls/hr IV ONETIME ONE Stop: 01/04/19 20:06 Last Admin: 01/04/19 18:56 Dose: 150 mls/hr Vancomycin HCl 1 gm/ Sodium (Chloride) 250 mls @ 150 mls/hr IV ONETIME ONE Stop: 01/04/19 21:10 Last Admin: 01/04/19 22:15 Dose: 150 mls/hr Piperacillin Sod/Tazobactam (Sod 3.375 gm/ Sodium Chloride) 50 mls @ 100 mls/ hr IV Q6H [facility] Sodium Chloride (Normal Saline) 1,000 mls @ 125 mls/hr IV ASDIRECTED [facility] Last Admin: 01/05/19 06:37 Dose: 125 mls/hr Piperacillin/Tazobactam/ (Dextrose 3.375 gm/ Premix) 50 mls @ 100 mls/hr IV Q6H [facility] Last Admin: 01/06/19 07:27 Dose: Not Given Sodium Chloride (Normal Saline) 1,000 mls @ 25 mls/hr IV ASDIRECTED [facility] Last Admin: 01/06/19 07:53 Dose: 25 mls/hr - Exam Quality Assessment: No: Supplemental Oxygen General: Alert, Oriented, Cooperative, No Acute Distress Lungs: Normal Respiratory Effort Cardiovascular: Regular Rate, Regular Rhythm GI/Abdominal Exam: Soft, No Distention Extremities: Pedal Edema (Mild edema of both feet), Increased Warmth (Left anterior may) Skin: Warm, Dry, Rash (Deep red erythema over the anterior left may with mild drainage from the middle of the erythema. There is no fluctuance. The area of erythema as well within the marked borders and slowly improving) Psy/Mental Status: Alert, Normal Affect - Problem List & Annotations (1) Cellulitis of left lower extremity SNOMED Code(s): 642221021 Code(s): L03.116 - CELLULITIS OF LEFT LOWER LIMB Status: Acute Current Visit: Yes (2) Insulin dependent diabetes mellitus SNOMED Code(s): 28687656 Code(s): E11.9 - TYPE 2 DIABETES MELLITUS WITHOUT COMPLICATIONS; Z79.4 - DETENTION (CURRENT) USE OF INSULIN Status: Chronic Current Visit: Yes (3) Hypertension SNOMED Code(s): 40539159 Code(s): I10 - ESSENTIAL (PRIMARY) HYPERTENSION Status: Chronic Current Visit: Yes Qualifiers: Hypertension type: essential hypertension Qualified Code(s): I10 - Essential (primary) hypertension (4) Colon cancer SNOMED Code(s): 755508066 Code(s): C18.9 - MALIGNANT NEOPLASM OF COLON, UNSPECIFIED Status: Chronic Current Visit: Yes Qualifiers: Colon location: unspecified part of colon Qualified Code(s): C18.9 - Malignant neoplasm of colon, unspecified - Problem List Review Problem List Initiated/Reviewed/Updated: Yes - My Orders Last 24 Hours: My Active Orders 01/05/19 21:00 Cholestyramine/Sucrose [Cholestyramine Packet] 4 gm PO BID 01/06/19 11:28 Convert IV to Saline Lock [OM.PC] Routine 01/06/19 11:30 cefTAZidime Pentahydrate [Fortaz] 1 gm Sodium Chloride 0.9% [Normal Saline] 50 ml IV Q8H 01/06/19 16:30 GLUCOSE POC LAB TO COLLECT [POC] QIDACANDBED 01/06/19 21:00 GLUCOSE POC LAB TO COLLECT [POC] QIDACANDBED 01/07/19 05:00 BASIC METABOLIC PANEL,BMP [CHEM] Timed CBC W/O DIFF,HEMOGRAM [HEME] Timed (1) 01/07/19 07:30 GLUCOSE POC LAB TO COLLECT [POC] QIDACANDBED 01/07/19 11:30 GLUCOSE POC LAB TO COLLECT [POC] QIDACANDBED 01/07/19 16:30 GLUCOSE POC LAB TO COLLECT [POC] QIDACANDBED 01/07/19 21:00 GLUCOSE POC LAB TO COLLECT [POC] QIDACANDBED 01/08/19 07:30 GLUCOSE POC LAB TO COLLECT [POC] QIDACANDBED 01/08/19 11:30 GLUCOSE POC LAB TO COLLECT [POC] QIDACANDBED 01/08/19 16:30 GLUCOSE POC LAB TO COLLECT [POC] QIDACANDBED 01/08/19 21:00 GLUCOSE POC LAB TO COLLECT [POC] QIDACANDBED 01/09/19 07:30 GLUCOSE POC LAB TO COLLECT [POC] QIDACANDBED 01/09/19 11:30 GLUCOSE POC LAB TO COLLECT [POC] QIDACANDBED 01/09/19 16:30 GLUCOSE POC LAB TO COLLECT [POC] QIDACANDBED 01/09/19 21:00 GLUCOSE POC LAB TO COLLECT [POC] QIDACANDBED 01/10/19 07:30 GLUCOSE POC LAB TO COLLECT [POC] QIDACANDBED - Plan Plan:: ASSESSMENT AND PLAN - Left lower extremity cellulitis - ongoing improvement but still a fair amount of erythema. No fevers. Cultures growing a staph species but final identification and sensitivities are pending. We did switch anabiotics though I do not believe he had an actual reaction to the Zosyn. -Continue vancomycin -Change antibiotics to ceftazidime -Follow-up cultures -Pain control -Trial of diuresis today Insulin-dependent diabetes mellitus - blood sugar are much better with the drastic reductions in his home regimen -Continue to hold long-acting insulin and glipizide -Mealtime insulin 5 units -Metformin -Reassess additional management again tomorrow Colon cancer - last chemotherapy was about one month ago. Recently told by the oncologist that he is cancer free at this time. Essential hypertension - continue home medications Maintenance issues - - DVT prophylaxis - enoxaparin - GI prophylaxis - not indicated - Nutrition - diabetic Disposition - I would anticipate discharge home after the hospital stay Primary care physician - [place], [place] Wilfrido Hagen M.D.
[2019-01-06] MEDS ORDERED: Furosemide 40 MG Tab PO ONE (13:05)
[2019-01-06] MEDS: Simvastatin 20 MG Tab PO SCH (20:24)
[2019-01-06] MEDS: Acetaminophen 325 MG Tab PO PRN (20:50)
[2019-01-07] MEDS: Insulin Lispro 100 Unit/ML 3 ML KwikPen SUBCUT SCH ×7 (07:58→21:10)
[2019-01-07] MEDS: metFORMIN 500 MG Tab PO SCH ×2 (08:09→17:25)
[2019-01-07] MEDS: Fluticasone Propionate Nasal Spray 16 GM Bottle NASBOTH SCH (08:10)
[2019-01-07] MEDS: Propranolol 60 MG Cap.ER PO SCH (08:11)
[2019-01-07] MEDS: Lactobacillus Rhamnosus GG (Probiotic) Cap PO SCH ×2 (08:11→20:42)
[2019-01-07] MEDS: Lisinopril 10 MG Tab PO SCH (08:11)
[2019-01-07] MEDS: Cholestyramine/Sucrose Powder 4 GM Packet PO SCH ×2 (08:11→20:42)
[2019-01-07] MEDS: Aspirin 81 MG Tab.EC PO SCH (08:11)
--- NOTE | 2019-01-07 12:58 | PCM.PN ---
- General Info Date of Service: 01/07/19 Subjective Update: Mr. Gong has remained stable since yesterday with no significant temperature elevation, vital signs have been stable. He has persistent erythema especially over the anterior aspect of the left lower leg. - Review of Systems General: Reports: Weakness. Denies: Fever, Chills Pulmonary: Reports: No Symptoms Cardiovascular: Reports: No Symptoms Gastrointestinal: Reports: No Symptoms Musculoskeletal: Reports: Leg Pain Skin: Reports: Other (Erythema lower leg) - Patient Data Vitals - Most Recent: Last Vital Signs Temp 97.2 F 01/07/19 11:43 Pulse 78 01/07/19 11:43 Resp 18 01/07/19 11:43 BP 134/53 L 01/07/19 11:43 Pulse Ox 100 01/07/19 11:43 Weight - Most Recent: 252 lb 9.6 oz I&O - Last 24 Hours: Intake & Output 01/06/19 01/07/19 01/07/19 22:59 06:59 14:59 Intake Total 250 55 890 Output Total 2716 252 3946 Balance -3040 -375 210 Lab Results Last 24 Hours: Laboratory Results - last 24 hr 01/07/19 01/07/19 01/07/19 Range/Units 07:58 07:58 07:58 WBC 4.0 L (4.5-11.0) K/uL RBC 3.16 L (4.30-5.90) M/uL Hgb 9.8 L (12.0-15.0) g/dL Hct 31.8 L (40.0-54.0) % MCV 101 H (80-98) fL MCH 31 (27-31) pg MCHC 31 L (32-36) % Plt Count 90 L (150-400) K/uL Sodium 138 L (140-148) mmol/L Potassium 5.0 (3.6-5.2) mmol/L Chloride 106 (100-108) mmol/L Carbon Dioxide 23 (21-32) mmol/L Anion Gap 14.0 (5.0-14.0) mmol/L BUN 14 (7-18) mg/dL Creatinine 1.0 (0.8-1.3) mg/dL Est Cr Clr Drug Dosing 72.16 mL/min Estimated GFR (MDRD) > 60 (>60) Glucose 117 H (74-106) mg/dL Calcium 8.8 (8.5-10.1) mg/dL Vancomycin Trough 22.5 H (10.0-20.0) ug/mL [place] Results Last 24 Hours: Microbiology 01/04/19 18:30 Gram Stain - Final Leg, Left Wound Culture - Final Staphylococcus Aureus 01/04/19 18:30 Aerobic Blood Culture - Preliminary Blood - Venous - Iv Start NO GROWTH AFTER 2 DAYS Anaerobic Blood Culture - Preliminary NO GROWTH AFTER 2 DAYS 01/04/19 18:35 Aerobic Blood Culture - Preliminary Blood - Venous - Iv Start NO GROWTH AFTER 2 DAYS Anaerobic Blood Culture - Preliminary NO GROWTH AFTER 2 DAYS Med Orders - Current: Current Medications Acetaminophen (Tylenol) 650 mg PO Q4H PRN PRN Reason: Pain (Mild 1-3)/fever Last Admin: 01/06/19 20:50 Dose: 650 mg Aspirin (Halfprin) 81 mg PO DAILY [facility] Last Admin: 01/07/19 08:11 Dose: 81 mg Cholestyramine Resin (Cholestyramine Packet) 4 gm PO BID [facility] Last Admin: 01/07/19 08:11 Dose: 4 gm Fluticasone Propionate (Flonase) 0 gm NASBOTH DAILY [facility] Last Admin: 01/07/19 08:10 Dose: 1 spray Hydroxyzine HCl (Atarax) 25 mg PO Q6H PRN PRN Reason: Itching Last Admin: 01/06/19 05:07 Dose: 25 mg Ceftazidime 1 gm/ Sodium (Chloride) 50 mls @ 100 mls/hr IV Q8H [facility] Last Admin: 01/07/19 12:52 Dose: 100 mls/hr Vancomycin HCl 1.5 gm/ Sodium (Chloride) 250 mls @ 150 mls/hr IV Q18H [facility] Insulin Human Lispro (Humalog) 5 unit SUBCUT TIDMEALS [facility] Last Admin: 01/07/19 12:14 Dose: 5 units Insulin Human Lispro (Humalog) 0 unit SUBCUT QIDACANDBED [facility]; Protocol Last Admin: 01/07/19 12:14 Dose: 1 unit Lactobacillus Rhamnosus (Culturelle) 1 cap PO BID [facility] Last Admin: 01/07/19 08:11 Dose: 1 cap Lisinopril (Prinivil) 10 mg PO DAILY [facility] Last Admin: 01/07/19 08:11 Dose: 10 mg Lorazepam (Ativan) 0.5 mg IVPUSH Q4H PRN PRN Reason: Nausea/Vomiting Magnesium Hydroxide (Milk Of Magnesia) 30 ml PO Q12H PRN PRN Reason: Constipation Melatonin (Melatonin) 9 mg PO BEDTIME PRN PRN Reason: Sleep Metformin HCl (Glucophage) 1,000 mg PO BIDMEALS [facility] Last Admin: 01/07/19 08:09 Dose: 1,000 mg Ondansetron HCl (Zofran Odt) 4 mg PO Q6H PRN PRN Reason: Nausea able to take PO Ondansetron HCl (Zofran) 4 mg IV Q6H PRN PRN Reason: Nausea/Vomiting Propranolol HCl (Inderal La) 60 mg PO DAILY [facility] Last Admin: 01/07/19 08:11 Dose: 60 mg Senna/Docusate Sodium (Senna Plus) 1 tab PO BID PRN PRN Reason: Constipation Simvastatin (Zocor) 20 mg PO BEDTIME [facility] Last Admin: 01/06/19 20:24 Dose: 20 mg Discontinued Medications Enoxaparin Sodium (Lovenox) 40 mg SUBCUT DAILY [facility] Last Admin: 01/05/19 10:56 Dose: Not Given Furosemide (Lasix) 40 mg PO ONETIME ONE Stop: 01/06/19 13:06 Last Admin: 01/06/19 13:25 Dose: 40 mg Ertapenem 1 gm/ Sodium (Chloride) 100 mls @ 200 mls/hr IV ONETIME ONE Stop: 01/04/19 18:56 Last Admin: 01/04/19 20:50 Dose: 200 mls/hr Sodium Chloride (Normal Saline) 1,000 mls @ 500 mls/hr IV ASDIRECTED [facility] Last Admin: 01/04/19 18:55 Dose: 500 mls/hr Vancomycin HCl 1 gm/ Sodium (Chloride) 250 mls @ 150 mls/hr IV ONETIME ONE Stop: 01/04/19 20:06 Last Admin: 01/04/19 18:56 Dose: 150 mls/hr Vancomycin HCl 1 gm/ Sodium (Chloride) 250 mls @ 150 mls/hr IV ONETIME ONE Stop: 01/04/19 21:10 Last Admin: 01/04/19 22:15 Dose: 150 mls/hr Piperacillin Sod/Tazobactam (Sod 3.375 gm/ Sodium Chloride) 50 mls @ 100 mls/ hr IV Q6H [facility] Sodium Chloride (Normal Saline) 1,000 mls @ 125 mls/hr IV ASDIRECTED [facility] Last Admin: 01/05/19 06:37 Dose: 125 mls/hr Vancomycin HCl 1.5 gm/ Sodium (Chloride) 250 mls @ 150 mls/hr IV Q12H [facility] Last Admin: 01/06/19 20:20 Dose: 150 mls/hr Piperacillin/Tazobactam/ (Dextrose 3.375 gm/ Premix) 50 mls @ 100 mls/hr IV Q6H [facility] Last Admin: 01/06/19 07:27 Dose: Not Given Sodium Chloride (Normal Saline) 1,000 mls @ 25 mls/hr IV ASDIRECTED [facility] Last Admin: 01/06/19 07:53 Dose: 25 mls/hr - Exam Quality Assessment: DVT Prophylaxis General: Alert, Oriented, Cooperative, Mild Distress Lungs: Clear to Auscultation, Normal Respiratory Effort Cardiovascular: Regular Rate, Regular Rhythm, No Murmurs GI/Abdominal Exam: Soft, Non-Tender, No Organomegaly, No Distention Extremities: Increased Warmth, Redness - Problem List Review Problem List Initiated/Reviewed/Updated: Yes - My Orders Last 24 Hours: My Active Orders 01/07/19 11:31 Extremity Non Vascular Lt [US] Urgent 01/08/19 05:00 CBC WITH AUTO DIFF [HEME] Timed - Plan Plan:: ASSESSMENT AND PLAN - Left lower extremity cellulitis - ongoing improvement but still a fair amount of erythema. Cultures have grown out staph aureus, methicillin sensitive -Continue vancomycin and ceftazidime -Ultrasound left lower leg to evaluate for abscess -Pain control -Trial of diuresis today Insulin-dependent diabetes mellitus - blood sugar are much better with the drastic reductions in his home regimen. Glucose levels have remained stable over the last 24 hours -Continue to hold long-acting insulin and glipizide -Mealtime insulin 5 units -Metformin -Reassess additional management again tomorrow Colon cancer - last chemotherapy was about one month ago. Recently told by the oncologist that he is cancer free at this time. Essential hypertension - continue home medications Maintenance issues - - DVT prophylaxis - enoxaparin - GI prophylaxis - not indicated - Nutrition - diabetic Disposition - I would anticipate discharge home after the hospital stay Primary care physician - [place], [place]
[2019-01-07] MEDS: Albuterol 0.083% 2.5 MG/3 ML Neb Soln NEB PRN ×2 (16:05→20:56)
--- NOTE | 2019-01-07 16:11 | CRLUS ---
INDICATION: Left redness and swelling. Evaluate for abscess with associated cellulitis TECHNIQUE: Sonogram of the left mid and lower calf in the region of clinical concern. FINDINGS: Sonogram of the left mid and lower calf in the region of clinical concern demonstrates moderate edema in the subcutaneous and soft tissues consistent with the known cellulitis. No discrete drainable fluid collection to suggest abscess. Remainder negative. IMPRESSION: Sonogram of the left mid and lower calf in the region of clinical concern demonstrates moderate subcutaneous soft tissue edema consistent with the known cellulitis without a definable abscess. Dictated by Macho Zuñiga MD @ Jan 07 2019 4:08PM Signed by Dr. Macho Zuñiga @ Jan 07 2019 4:10PM
[2019-01-07] MEDS ORDERED: Furosemide 40 MG/4 ML VIAL IVPUSH ONE (16:59)
[2019-01-07] MEDS: Acetaminophen 325 MG Tab PO PRN (20:42)
[2019-01-07] MEDS: Simvastatin 20 MG Tab PO SCH (20:42)
[2019-01-08] MEDS: Insulin Lispro 100 Unit/ML 3 ML KwikPen SUBCUT SCH ×7 (08:31→21:10)
[2019-01-08] MEDS: Propranolol 60 MG Cap.ER PO SCH (08:32)
[2019-01-08] MEDS: Fluticasone Propionate Nasal Spray 16 GM Bottle NASBOTH SCH (08:32)
[2019-01-08] MEDS: metFORMIN 500 MG Tab PO SCH ×2 (08:33→17:35)
[2019-01-08] MEDS: Aspirin 81 MG Tab.EC PO SCH (08:33)
[2019-01-08] MEDS: Lisinopril 10 MG Tab PO SCH (08:33)
[2019-01-08] MEDS: Lactobacillus Rhamnosus GG (Probiotic) Cap PO SCH ×2 (08:33→20:17)
[2019-01-08] MEDS: Cholestyramine/Sucrose Powder 4 GM Packet PO SCH ×2 (08:34→20:17)
[2019-01-08] MEDS: Albuterol 0.083% 2.5 MG/3 ML Neb Soln NEB PRN ×2 (09:38→15:53)
[2019-01-08] MEDS ORDERED: Furosemide 40 MG/4 ML VIAL IVPUSH ONE (12:23)
--- NOTE | 2019-01-08 12:29 | PCM.PN ---
- General Info Date of Service: 01/08/19 Subjective Update: Mr. Gong has noted further improvement in the cellulitis since yesterday and significant decrease in edema. Vital signs have remained stable and he has been afebrile. Functional Status: Reports: Tolerating Diet, Ambulating, Urinating - Review of Systems General: Reports: Weakness. Denies: Fever, Chills Cardiovascular: Reports: No Symptoms Gastrointestinal: Reports: No Symptoms Genitourinary: Reports: No Symptoms Skin: Reports: Other (Persistent erythema anterior aspect left lower leg) - Patient Data Vitals - Most Recent: Last Vital Signs Temp 98.4 F 01/08/19 11:00 Pulse 96 01/08/19 11:00 Resp 18 01/08/19 11:00 BP 134/69 01/08/19 11:00 Pulse Ox 95 01/08/19 11:00 Weight - Most Recent: 252 lb 9.585 oz I&O - Last 24 Hours: Intake & Output 01/07/19 01/08/19 01/08/19 22:59 06:59 14:59 Intake Total 290 730 Output Total 3050 525 350 Balance -2760 -525 380 Lab Results Last 24 Hours: Laboratory Results - last 24 hr 01/08/19 Range/Units 04:15 WBC 3.4 L (4.5-11.0) K/uL RBC 3.04 L (4.30-5.90) M/uL Hgb 9.6 L (12.0-15.0) g/dL Hct 30.4 L (40.0-54.0) % MCV 100 H (80-98) fL MCH 32 H (27-31) pg MCHC 32 (32-36) % Plt Count 86 L (150-400) K/uL Neut % (Auto) 61 (36-66) % Lymph % (Auto) 21 L (24-44) % [place] % (Auto) 16 H (2-6) % Eos % (Auto) 2 (2-4) % Baso % (Auto) 0 (0-1) % [place] Results Last 24 Hours: Microbiology 01/04/19 18:30 Aerobic Blood Culture - Preliminary Blood - Venous - Iv Start NO GROWTH AFTER 3 DAYS Anaerobic Blood Culture - Preliminary NO GROWTH AFTER 3 DAYS 01/04/19 18:35 Aerobic Blood Culture - Preliminary Blood - Venous - Iv Start NO GROWTH AFTER 3 DAYS Anaerobic Blood Culture - Preliminary NO GROWTH AFTER 3 DAYS Med Orders - Current: Current Medications Acetaminophen (Tylenol) 650 mg PO Q4H PRN PRN Reason: Pain (Mild 1-3)/fever Last Admin: 01/07/19 20:42 Dose: 650 mg Albuterol (Proventil Neb Soln) 2.5 mg NEB Q4H PRN PRN Reason: Dyspnea Last Admin: 01/08/19 09:38 Dose: 2.5 mg Aspirin (Halfprin) 81 mg PO DAILY [facility] Last Admin: 01/08/19 08:33 Dose: 81 mg Cholestyramine Resin (Cholestyramine Packet) 4 gm PO BID [facility] Last Admin: 01/08/19 08:34 Dose: 4 gm Fluticasone Propionate (Flonase) 0 gm NASBOTH DAILY [facility] Last Admin: 01/08/19 08:32 Dose: 1 spray Furosemide (Lasix) 40 mg IVPUSH NOW ONE Stop: 01/08/19 12:24 Hydroxyzine HCl (Atarax) 25 mg PO Q6H PRN PRN Reason: Itching Last Admin: 01/06/19 05:07 Dose: 25 mg Ceftazidime 1 gm/ Sodium (Chloride) 50 mls @ 100 mls/hr IV Q8H [facility] Last Admin: 01/08/19 11:59 Dose: 100 mls/hr Vancomycin HCl 1.5 gm/ Sodium (Chloride) 250 mls @ 150 mls/hr IV Q18H [facility] Last Admin: 01/08/19 08:50 Dose: 150 mls/hr Insulin Human Lispro (Humalog) 5 unit SUBCUT TIDMEALS [facility] Last Admin: 01/08/19 11:30 Dose: 5 units Insulin Human Lispro (Humalog) 0 unit SUBCUT QIDACANDBED [facility]; Protocol Last Admin: 01/08/19 11:29 Dose: 2 unit Lactobacillus Rhamnosus (Culturelle) 1 cap PO BID [facility] Last Admin: 01/08/19 08:33 Dose: 1 cap Lisinopril (Prinivil) 10 mg PO DAILY [facility] Last Admin: 01/08/19 08:33 Dose: 10 mg Lorazepam (Ativan) 0.5 mg IVPUSH Q4H PRN PRN Reason: Nausea/Vomiting Magnesium Hydroxide (Milk Of Magnesia) 30 ml PO Q12H PRN PRN Reason: Constipation Melatonin (Melatonin) 9 mg PO BEDTIME PRN PRN Reason: Sleep Metformin HCl (Glucophage) 1,000 mg PO BIDMEALS [facility] Last Admin: 01/08/19 08:33 Dose: 1,000 mg Ondansetron HCl (Zofran Odt) 4 mg PO Q6H PRN PRN Reason: Nausea able to take PO Ondansetron HCl (Zofran) 4 mg IV Q6H PRN PRN Reason: Nausea/Vomiting Propranolol HCl (Inderal La) 60 mg PO DAILY [facility] Last Admin: 01/08/19 08:32 Dose: 60 mg Senna/Docusate Sodium (Senna Plus) 1 tab PO BID PRN PRN Reason: Constipation Simvastatin (Zocor) 20 mg PO BEDTIME [facility] Last Admin: 01/07/19 20:42 Dose: 20 mg Discontinued Medications Enoxaparin Sodium (Lovenox) 40 mg SUBCUT DAILY [facility] Last Admin: 01/05/19 10:56 Dose: Not Given Furosemide (Lasix) 40 mg PO ONETIME ONE Stop: 01/06/19 13:06 Last Admin: 01/06/19 13:25 Dose: 40 mg Furosemide (Lasix) 40 mg IVPUSH NOW ONE Stop: 01/07/19 17:00 Last Admin: 01/07/19 17:30 Dose: 40 mg Ertapenem 1 gm/ Sodium (Chloride) 100 mls @ 200 mls/hr IV ONETIME ONE Stop: 01/04/19 18:56 Last Admin: 01/04/19 20:50 Dose: 200 mls/hr Sodium Chloride (Normal Saline) 1,000 mls @ 500 mls/hr IV ASDIRECTED [facility] Last Admin: 01/04/19 18:55 Dose: 500 mls/hr Vancomycin HCl 1 gm/ Sodium (Chloride) 250 mls @ 150 mls/hr IV ONETIME ONE Stop: 01/04/19 20:06 Last Admin: 01/04/19 18:56 Dose: 150 mls/hr Vancomycin HCl 1 gm/ Sodium (Chloride) 250 mls @ 150 mls/hr IV ONETIME ONE Stop: 01/04/19 21:10 Last Admin: 01/04/19 22:15 Dose: 150 mls/hr Piperacillin Sod/Tazobactam (Sod 3.375 gm/ Sodium Chloride) 50 mls @ 100 mls/ hr IV Q6H [facility] Sodium Chloride (Normal Saline) 1,000 mls @ 125 mls/hr IV ASDIRECTED [facility] Last Admin: 01/05/19 06:37 Dose: 125 mls/hr Vancomycin HCl 1.5 gm/ Sodium (Chloride) 250 mls @ 150 mls/hr IV Q12H [facility] Last Admin: 01/06/19 20:20 Dose: 150 mls/hr Piperacillin/Tazobactam/ (Dextrose 3.375 gm/ Premix) 50 mls @ 100 mls/hr IV Q6H [facility] Last Admin: 01/06/19 07:27 Dose: Not Given Sodium Chloride (Normal Saline) 1,000 mls @ 25 mls/hr IV ASDIRECTED [facility] Last Admin: 01/06/19 07:53 Dose: 25 mls/hr - Exam General: Alert, Oriented, Cooperative, Mild Distress Lungs: Clear to Auscultation, Normal Respiratory Effort Cardiovascular: Regular Rate, Regular Rhythm, No Murmurs GI/Abdominal Exam: Soft, Non-Tender, No Organomegaly, No Distention Extremities: Redness (Good improvement in erythema and swelling left lower leg over the last 24 hours) - Problem List Review Problem List Initiated/Reviewed/Updated: Yes - My Orders Last 24 Hours: My Active Orders 01/07/19 15:38 RT Aerosol Therapy [RC] ASDIRECTED Albuterol [Proventil Neb Soln] 2.5 mg NEB Q4H PRN 01/08/19 12:23 Furosemide [Lasix] 40 mg IVPUSH NOW ONE 01/09/19 05:00 BASIC METABOLIC PANEL,BMP [CHEM] Timed CBC WITH AUTO DIFF [HEME] Timed - Plan Plan:: ASSESSMENT AND PLAN - Left lower extremity cellulitis - good improvement in erythema and swelling over the last 24 hours. Ultrasound obtained yesterday shows no evidence of underlying abscess -Repeat furosemide 40 mg IV today -Continue vancomycin and ceftazidime Insulin-dependent diabetes mellitus - blood sugar are much better with the drastic reductions in his home regimen. Glucose levels have remained stable over the last 24 hours -Continue to hold long-acting insulin and glipizide -Mealtime insulin 5 units -Metformin -Reassess additional management again tomorrow Colon cancer - last chemotherapy was about one month ago. Recently told by the oncologist that he is cancer free at this time. Essential hypertension - continue home medications Maintenance issues - - DVT prophylaxis - enoxaparin - GI prophylaxis - not indicated - Nutrition - diabetic Disposition - I would anticipate discharge home after the hospital stay Primary care physician - Sacha Cortez
[2019-01-08] MEDS: Acetaminophen 325 MG Tab PO PRN (17:42)
[2019-01-08] MEDS: Simvastatin 20 MG Tab PO SCH (20:17)
[2019-01-09] MEDS: metFORMIN 500 MG Tab PO SCH (07:42)
[2019-01-09] MEDS: Insulin Lispro 100 Unit/ML 3 ML KwikPen SUBCUT SCH ×4 (07:43→11:35)
[2019-01-09] MEDS: Fluticasone Propionate Nasal Spray 16 GM Bottle NASBOTH SCH (08:20)
[2019-01-09] MEDS: Lactobacillus Rhamnosus GG (Probiotic) Cap PO SCH (08:20)
[2019-01-09] MEDS: Cholestyramine/Sucrose Powder 4 GM Packet PO SCH (08:20)
[2019-01-09] MEDS: Aspirin 81 MG Tab.EC PO SCH (08:21)
[2019-01-09] MEDS: Lisinopril 10 MG Tab PO SCH (08:21)
[2019-01-09] MEDS: Propranolol 60 MG Cap.ER PO SCH (08:21)
[2019-01-09] MEDS: Albuterol 0.083% 2.5 MG/3 ML Neb Soln NEB PRN (10:45)
--- NOTE | 2019-01-09 12:16 | PCM.DCSUM1 ---
Discharge Summary - Hospital Course Brief History: Mr. Gong is a 73-year-old gentleman who was admitted through the emergency department with swelling and erythema of his left lower leg secondary to underlying cellulitis. - Discharge Data Discharge Date: 01/09/19 Discharge Disposition: Home, Self-Care 01 Condition: Stable - Discharge Diagnosis/Problem(s) (1) Cellulitis of left lower extremity SNOMED Code(s): 646522772 ICD Code: L03.116 - CELLULITIS OF LEFT LOWER LIMB Status: Acute Current Visit: Yes (2) Colon cancer SNOMED Code(s): 462900739 ICD Code: C18.9 - MALIGNANT NEOPLASM OF COLON, UNSPECIFIED Status: Chronic Current Visit: Yes Qualifiers: Colon location: unspecified part of colon Qualified Code(s): C18.9 - Malignant neoplasm of colon, unspecified (3) Type 2 diabetes mellitus SNOMED Code(s): 19963042 ICD Code: E11.9 - TYPE 2 DIABETES MELLITUS WITHOUT COMPLICATIONS Status: Chronic Current Visit: No - Patient Summary/Data Hospital Course: Mr. Gong presented to the emergency room with left lower extremity swelling, redness and drainage. He thinks he bumped his anterior may a couple of days ago but has not had any significant pain. Yesterday morning he noticed that his left leg was a little swollen and slightly red in the morning but did not pay attention to it throughout the day. He has not had any pain in the leg. He thought it was a little bit more swollen and red this morning. This afternoon it was itchy so he had some look at and they told him to get checked out right away with concerns for cellulitis. He reports itchy skin throughout the lower leg especially anteriorly. He does not have any numbness or tingling. He has had chills that started last night but has not measured any fevers at home. He feels weak and tired but otherwise feels okay. Workup in the emergency room revealed fairly normal labs. Physical examination revealed obvious cellulitis involving almost the entire left leg below the knee. He does have an open weeping area on the anterior may that was cultured. He has received vancomycin and ertapenem. Cultures have been obtained. He is receiving some IV fluids. He will be admitted for further management. On admission he was placed on IV vancomycin and Zosyn as well as IV fluids for hydration and pain medication. Cultures from the wound later grew out staph aureus which was sensitive to most antibiotics. He appeared to have possible reaction to the Zosyn during hospital stay so this was discontinued and he was transitioned to IV ceftazedime. It was significant swelling in the leg and he did receive diuretic therapy as well. Over the course of his hospital stay cellulitis improved and was essentially resolved or close to resolved by the time of discharge. Blood glucose levels were initially noted to be low and his diabetes medications were adjusted significantly to accommodate the hypoglycemia. Dose of metformin will be decreased to 500 mg twice daily on discharge. Lantus insulin will be decreased from 55 units to 30 units once daily. Short acting insulin will be 5 units 3 times daily with each meal. Glipizide and Trulicity were discontinued and will not be resumed at the time of discharge. He will be discharged to home on 5 additional days of oral antibiotic therapy with ciprofloxacin 500 mg twice daily. Activity will be as tolerated and he will remain on a diabetic diet. Follow-up appointment will be scheduled with his primary care provider within 2 weeks. - Patient Instructions Diet: Diabetic Diet Activity: As Tolerated Other/Special Instructions: Please schedule follow-up appointment with primary care provider within 2 weeks - Discharge Plan *PRESCRIPTION DRUG MONITORING PROGRAM REVIEWED*: Not Applicable *COPY OF PRESCRIPTION DRUG MONITORING REPORT IN PATIENT CESILIA: Not Applicable Prescriptions/Med Rec: Ciprofloxacin [Ciprofloxacin HCl] 500 mg PO BID #10 tab Lactobacillus Rhamnosus GG [Culturelle] 1 cap PO BID #60 cap metFORMIN [Glucophage] 500 mg PO BIDMEALS #60 tablet Home Medications: Home Meds Aspirin [Ecotrin EC] 81 mg PO DAILY 01/04/19 [History] Cholestyramine/Aspartame [Prevalite Powder] 4 gm PO BID 01/04/19 [History] Fluticasone Propionate [Flonase] 16 gm NS ASDIRECTED 01/04/19 [History] Lisinopril 10 mg PO DAILY 01/04/19 [History] Propranolol [Inderal LA] 60 mg PO DAILY 01/04/19 [History] Simvastatin [Zocor] 20 mg PO BEDTIME 01/04/19 [History] metFORMIN [Glucophage] 1,000 mg PO BIDMEALS 01/04/19 [History] Ciprofloxacin [Ciprofloxacin HCl] 500 mg PO BID #10 tab 01/09/19 [Rx] Insulin Degludec [Tresiba Flextouch U-100] 30 unit SQ DAILY #0 01/09/19 [Rx] Lactobacillus Rhamnosus GG [Culturelle] 1 cap PO BID #60 cap 01/09/19 [Rx] metFORMIN [Glucophage] 500 mg PO BIDMEALS #60 tablet 01/09/19 [Rx] Patient Handouts: Cellulitis, Adult, [id number] - Discharge Summary/Plan Comment DC Time >30 min.: No - Patient Data Vitals - Most Recent: Last Vital Signs Temp 98.6 F 01/09/19 08:04 Pulse 86 01/09/19 08:04 Resp 20 01/09/19 08:04 BP 119/66 01/09/19 08:21 Pulse Ox 95 01/09/19 08:04 Weight - Most Recent: 252 lb 9.585 oz I&O - Last 24 hours: Intake & Output 01/08/19 01/09/19 01/09/19 22:59 06:59 14:59 Intake Total 478 879 [id number] Output Total 750 800 500 Balance -340 -500 1000 Lab Results - Last 24 hrs: Laboratory Results - last 24 hr 01/09/19 01/09/19 Range/Units 05:40 05:40 WBC 4.1 L (4.5-11.0) K/uL RBC 2.96 L (4.30-5.90) M/uL Hgb 9.6 L (12.0-15.0) g/dL Hct 29.6 L (40.0-54.0) % MCV 100 H (80-98) fL MCH 32 H (27-31) pg MCHC 32 (32-36) % Plt Count 84 L (150-400) K/uL Neut % (Auto) 66 (36-66) % Lymph % (Auto) 18 L (24-44) % [place] % (Auto) 15 H (2-6) % Eos % (Auto) 2 (2-4) % Baso % (Auto) 0 (0-1) % Sodium 140 (140-148) mmol/L Potassium 4.5 (3.6-5.2) mmol/L Chloride 107 (100-108) mmol/L Carbon Dioxide 26 (21-32) mmol/L Anion Gap 6.9 (5.0-14.0) mmol/L BUN 15 (7-18) mg/dL Creatinine 0.9 (0.8-1.3) mg/dL Est Cr Clr Drug Dosing 79.85 mL/min Estimated GFR (MDRD) > 60 (>60) Glucose 144 H (74-106) mg/dL Calcium 8.5 (8.5-10.1) mg/dL [place] Results - Last 24 hrs: Microbiology 01/04/19 18:30 Aerobic Blood Culture - Preliminary Blood - Venous - Iv Start NO GROWTH AFTER 4 DAYS Anaerobic Blood Culture - Preliminary NO GROWTH AFTER 4 DAYS 01/04/19 18:35 Aerobic Blood Culture - Preliminary Blood - Venous - Iv Start NO GROWTH AFTER 4 DAYS Anaerobic Blood Culture - Preliminary NO GROWTH AFTER 4 DAYS Med Orders - Current: Current Medications Acetaminophen (Tylenol) 650 mg PO Q4H PRN PRN Reason: Pain (Mild 1-3)/fever Last Admin: 01/08/19 17:42 Dose: 650 mg Albuterol (Proventil Neb Soln) 2.5 mg NEB Q4H PRN PRN Reason: Dyspnea Last Admin: 01/09/19 10:45 Dose: 2.5 mg Aspirin (Halfprin) 81 mg PO DAILY [facility] Last Admin: 01/09/19 08:21 Dose: 81 mg Cholestyramine Resin (Cholestyramine Packet) 4 gm PO BID [facility] Last Admin: 01/09/19 08:20 Dose: 4 gm Fluticasone Propionate (Flonase) 0 gm NASBOTH DAILY [facility] Last Admin: 01/09/19 08:20 Dose: 1 spray Hydroxyzine HCl (Atarax) 25 mg PO Q6H PRN PRN Reason: Itching Last Admin: 01/06/19 05:07 Dose: 25 mg Ceftazidime 1 gm/ Sodium (Chloride) 50 mls @ 100 mls/hr IV Q8H [facility] Last Admin: 01/09/19 04:49 Dose: 100 mls/hr Vancomycin HCl 1.5 gm/ Sodium (Chloride) 250 mls @ 150 mls/hr IV Q18H [facility] Last Admin: 01/09/19 02:49 Dose: 150 mls/hr Insulin Human Lispro (Humalog) 5 unit SUBCUT TIDMEALS [facility] Last Admin: 01/09/19 11:35 Dose: 5 units Insulin Human Lispro (Humalog) 0 unit SUBCUT QIDACANDBED [facility]; Protocol Last Admin: 01/09/19 11:35 Dose: 3 unit Lactobacillus Rhamnosus (Culturelle) 1 cap PO BID [facility] Last Admin: 01/09/19 08:20 Dose: 1 cap Lisinopril (Prinivil) 10 mg PO DAILY [facility] Last Admin: 01/09/19 08:21 Dose: 10 mg Lorazepam (Ativan) 0.5 mg IVPUSH Q4H PRN PRN Reason: Nausea/Vomiting Magnesium Hydroxide (Milk Of Magnesia) 30 ml PO Q12H PRN PRN Reason: Constipation Melatonin (Melatonin) 9 mg PO BEDTIME PRN PRN Reason: Sleep Metformin HCl (Glucophage) 1,000 mg PO BIDMEALS [facility] Last Admin: 01/09/19 07:42 Dose: 1,000 mg Ondansetron HCl (Zofran Odt) 4 mg PO Q6H PRN PRN Reason: Nausea able to take PO Ondansetron HCl (Zofran) 4 mg IV Q6H PRN PRN Reason: Nausea/Vomiting Propranolol HCl (Inderal La) 60 mg PO DAILY [facility] Last Admin: 01/09/19 08:21 Dose: 60 mg Senna/Docusate Sodium (Senna Plus) 1 tab PO BID PRN PRN Reason: Constipation Simvastatin (Zocor) 20 mg PO BEDTIME [facility] Last Admin: 01/08/19 20:17 Dose: 20 mg Discontinued Medications Enoxaparin Sodium (Lovenox) 40 mg SUBCUT DAILY [facility] Last Admin: 01/05/19 10:56 Dose: Not Given Furosemide (Lasix) 40 mg PO ONETIME ONE Stop: 01/06/19 13:06 Last Admin: 01/06/19 13:25 Dose: 40 mg Furosemide (Lasix) 40 mg IVPUSH NOW ONE Stop: 01/07/19 17:00 Last Admin: 01/07/19 17:30 Dose: 40 mg Furosemide (Lasix) 40 mg IVPUSH NOW ONE Stop: 01/08/19 12:24 Last Admin: 01/08/19 13:27 Dose: 40 mg Ertapenem 1 gm/ Sodium (Chloride) 100 mls @ 200 mls/hr IV ONETIME ONE Stop: 01/04/19 18:56 Last Admin: 01/04/19 20:50 Dose: 200 mls/hr Sodium Chloride (Normal Saline) 1,000 mls @ 500 mls/hr IV ASDIRECTED [facility] Last Admin: 01/04/19 18:55 Dose: 500 mls/hr Vancomycin HCl 1 gm/ Sodium (Chloride) 250 mls @ 150 mls/hr IV ONETIME ONE Stop: 01/04/19 20:06 Last Admin: 01/04/19 18:56 Dose: 150 mls/hr Vancomycin HCl 1 gm/ Sodium (Chloride) 250 mls @ 150 mls/hr IV ONETIME ONE Stop: 01/04/19 21:10 Last Admin: 01/04/19 22:15 Dose: 150 mls/hr Piperacillin Sod/Tazobactam (Sod 3.375 gm/ Sodium Chloride) 50 mls @ 100 mls/ hr IV Q6H [facility] Sodium Chloride (Normal Saline) 1,000 mls @ 125 mls/hr IV ASDIRECTED [facility] Last Admin: 01/05/19 06:37 Dose: 125 mls/hr Vancomycin HCl 1.5 gm/ Sodium (Chloride) 250 mls @ 150 mls/hr IV Q12H [facility] Last Admin: 01/06/19 20:20 Dose: 150 mls/hr Piperacillin/Tazobactam/ (Dextrose 3.375 gm/ Premix) 50 mls @ 100 mls/hr IV Q6H [facility] Last Admin: 01/06/19 07:27 Dose: Not Given Sodium Chloride (Normal Saline) 1,000 mls @ 25 mls/hr IV ASDIRECTED [facility] Last Admin: 01/06/19 07:53 Dose: 25 mls/hr *Q Meaningful Use (DIS) - VTE *Q VTE Mechanical Contraindications *Q: Bilateral Lower Edema
== END 2019-01-09 13:00 | disposition home or self-care (01) | DRG 603 ==
LOC: JP.ED 17:42 → JP.MS 19:32 → UNDOADMIN 19:32 → JP.MS 20:23 → UNDODISIN 01-09 13:00
PROVIDERS: ADMIT Internal Medicine; ATTEND Hospitalist
DX: L03.116 Cellulitis of left lower limb (principal); E66.9 Obesity, unspecified; E11.649 Type 2 diabetes mellitus with hypoglycemia without coma; E11.9 Type 2 diabetes mellitus without complications; Z96.641 Presence of right artificial hip joint; E78.00 Pure hypercholesterolemia, unspecified; I10 Essential (primary) hypertension; Z90.49 Acquired absence of other specified parts of digestive tract; Z98.49 Cataract extraction status, unspecified eye; Z98.890 Other specified postprocedural states; Z87.891 Personal history of nicotine dependence; Z79.82 Long term (current) use of aspirin; Z79.51 Long term (current) use of inhaled steroids; Z79.4 Long term (current) use of insulin; Z79.899 Other long term (current) drug therapy; Z68.35 Body mass index [BMI] 35.0-35.9, adult; Z85.038 Personal history of other malignant neoplasm of large intestine
CPT/HCPCS: 36415; 80053; 83605; 85025; 87040 ×2; 87070; 87077; 87186; 87205; 96365; 99284; J3370; J7030; J7050; 76881-LT; 80048; 80202; 82962; 85027; 94640; A9270-GY; J0713; J1335; J1815; J1940; J2543

== ENCOUNTER 2022-12-11 09:31 | Inpatient (IN) | payer MEDICARE, OTHER ==
[2022-12-11] MEDS ORDERED: Sodium Chloride 0.9% 1,000 ML IV ONE ×2 (09:48→11:15)
[2022-12-11 10:21] LABS: MEAN CORPUSCULAR HEMOGLOBIN 32.4 pg (31.6-35.5); MEAN CORPUSCULAR HGB CONC 33.5 g/dL (31.6-35.5); MEAN CORPUSCULAR VOLUME 96.6 fL (81.4-99.0); RED BLOOD CELL COUNT 2.07 M/uL (4.14-5.76); WHITE BLOOD CELL COUNT,WBC 12.5 K/uL (3.2-11.0)
[2022-12-11 10:23] LABS: HEMOGLOBIN 6.7 g/dL (12.9-16.9)
[2022-12-11 10:42] LABS: A/G RATIO 0.7 (1.2-2.2); ALANINE AMINOTRANSFERASE,ALT 35 U/L (12-78); ALBUMIN 2.1 g/dL (3.4-5.0); ALKALINE PHOSPHATASE 161 U/L (46-116); ASPARTATE AMNIOTRANSFERASE,AST 53 U/L (15-37); BILIRUBIN TOTAL 0.9 mg/dL (0.2-1.0); BLOOD UREA NITROGEN,BUN 38 mg/dL (7-18); C-REACTIVE PROTEIN 1.29 mg/dL (0.0-0.3); CALCIUM 7.9 mg/dL (8.5-10.1); CARBON DIOXIDE,CO2 16 mmol/L (21-32); CHLORIDE,CL 108 mmol/L (100-108); CREATINE KINASE,CK 53 U/L (39-308); CREATININE 2.7 mg/dL (0.8-1.3); EST CRCL DRUG DOSING (CG) 22.87 mL/min; ESTIMATED GFR 24 mL/min (>60); GLUCOSE RANDOM 346 mg/dL (74-106); PROTEIN TOTAL,TP 5.3 g/dL (6.4-8.2); SODIUM,NA 136 mmol/L (140-148)
[2022-12-11 10:53] LABS: ANION GAP 18.8 mmol/L (5.0-14.0); POTASSIUM,K 6.8 mmol/L (3.6-5.2)
[2022-12-11] MEDS ORDERED: Albuterol 0.083% 2.5 MG/3 ML Neb Soln NEB ONE (10:58)
[2022-12-11] MEDS ORDERED: 50% Dextrose in Water 50 ML Syringe IVPUSH PRN (10:59)
[2022-12-11] MEDS ORDERED: Glucagon,Human Recombinant 1 MG Vial IM PRN (10:59)
[2022-12-11] MEDS ORDERED: Insulin Lispro 100 Units/ML 3 ML Vial SUBCUT ONE (10:59)
[2022-12-11] MEDS ORDERED: Sodium Polystyrene Sulfonate 15 GM/60 ML Susp 60 ML Bot PO ONE ×2 (11:15→17:30)
[2022-12-11] MEDS ORDERED: Ondansetron 4 MG/2 ML SDV IV PRN (13:22)
[2022-12-11] MEDS ORDERED: Acetaminophen 325 MG Tab PO PRN (13:22)
[2022-12-11] MEDS ORDERED: Polyethylene Glycol 3350 Powder 17 GM Packet PO PRN (13:22)
[2022-12-11] MEDS ORDERED: Sodium Chloride 0.9% 10 ML Syringe FLUSH PRN (13:22)
[2022-12-11] MEDS ORDERED: 50% Dextrose in Water 50 ML Syringe IV PRN (13:35)
[2022-12-11] MEDS ORDERED: Glucose Gel 15 GM in 37.5 GM Tube PO PRN (13:35)
[2022-12-11 14:39] LABS: FOLIC ACID 9.4 ng/ml (8.6-58.9)
[2022-12-11 14:53] LABS: IRON,FE 70 ug/dL (65-175); PERCENT FE SATURATION 32 % (20-55); TOTAL IRON BINDING CAPACITY 220 ug/dl (250-450)
[2022-12-11 15:05] LABS: RETICULOCYTE COUNT PERCENT 3.19 % (0.03-0.11)
[2022-12-11] MEDS: Sodium Chloride 0.9% 1,000 ML IV SCH ×2 (15:08→21:09)
[2022-12-11] MEDS: Pantoprazole 40 MG Vial IV SCH (15:09)
[2022-12-11] MEDS: Magnesium Sulfate/Water 2 GM in Premix Bag 1 BAG IV SCH ×2 (15:16→20:58)
[2022-12-11] MEDS: Magnesium Oxide 400 MG Tab PO SCH ×2 (15:17→21:09)
[2022-12-11] MEDS: Insulin Lispro 100 Unit/ML 3 ML KwikPen SUBCUT SCH ×2 (17:26→21:02)
[2022-12-11] MEDS: atorvaSTATin 10 MG Tab PO SCH (20:58)
[2022-12-12] MEDS: Magnesium Sulfate/Water 2 GM in Premix Bag 1 BAG IV SCH (04:07)
[2022-12-12] MEDS: Pantoprazole 40 MG Vial IV SCH (04:09)
[2022-12-12 05:38] LABS: BASOPHILS ABSOLUTE AUTO 0.02 K/uL (0.00-0.10); BASOPHILS PERCENT AUTO 0.4 % (0.1-1.3); EOSINOPHILS ABSOLUTE AUTO 0.05 K/uL (0.00-0.40); EOSINOPHILS PERCENT AUTO 0.9 % (0.0-5.4); HEMATOCRIT 21.2 % (38.4-49.7); HEMOGLOBIN 7.4 g/dL (12.9-16.9); IMMATURE GRAN ABSOLUTE AUTO 0.03 K/uL (0.00-0.23); IMMATURE GRAN PERCENT AUTO 0.5 % (0.0-0.7); LYMPHOCYTES PERCENT AUTO 14.3 % (11.4-47.7); MEAN CORPUSCULAR HEMOGLOBIN 31.9 pg (31.6-35.5); MEAN CORPUSCULAR HGB CONC 34.9 g/dL (31.6-35.5); MEAN CORPUSCULAR VOLUME 91.4 fL (81.4-99.0); MONOCYTES ABSOLUTE AUTO 0.72 K/uL (0.20-0.90); MONOCYTES PERCENT AUTO 12.8 % (3.3-12.6); NEUTROPHILS ABSOLUTE AUTO 3.99 K/uL (1.0-7.6); NEUTROPHILS PERCENT AUTO 71.1 % (40.0-78.1); PLATELET COUNT,PLT 72 K/uL (130-375); RED BLOOD CELL COUNT 2.32 M/uL (4.14-5.76); WHITE BLOOD CELL COUNT,WBC 5.6 K/uL (3.2-11.0)
[2022-12-12 05:48] LABS: CALCIUM 7.6 mg/dL (8.5-10.1); CREATININE 2.6 mg/dL (0.8-1.3); EST CRCL DRUG DOSING (CG) 23.84 mL/min; MAGNESIUM 2.7 mg/dL (1.8-2.4); POTASSIUM,K 4.8 mmol/L (3.6-5.2)
[2022-12-12 05:53] LABS: ANION GAP 13.8 mmol/L (5.0-14.0)
[2022-12-12] MEDS: Insulin Lispro 100 Unit/ML 3 ML KwikPen SUBCUT SCH ×4 (08:19→21:24)
[2022-12-12] MEDS ORDERED: INSULIN DEGLUDEC 100 UNIT/ML SQ SCH (09:00)
[2022-12-12] MEDS: Aspirin 81 MG Tab.EC PO SCH (09:39)
[2022-12-12] MEDS: Bacitracin Oint 1 GM U/D Packet TOP SCH (09:39)
[2022-12-12] MEDS: Propranolol 60 MG Cap.ER PO SCH (09:39)
[2022-12-12] MEDS: Magnesium Oxide 400 MG Tab PO SCH ×2 (09:40→20:33)
[2022-12-12] MEDS ORDERED: Propofol 200 MG/20 ML SDV ONE (10:46)
[2022-12-12] MEDS: Pantoprazole 40 MG Tab.CR PO SCH (17:02)
[2022-12-12] MEDS: atorvaSTATin 10 MG Tab PO SCH (20:33)
[2022-12-13 05:47] LABS: HEMATOCRIT 23.2 % (38.4-49.7); HEMOGLOBIN 8.2 g/dL (12.9-16.9); MEAN CORPUSCULAR HGB CONC 35.3 g/dL (31.6-35.5); MEAN CORPUSCULAR VOLUME 90.6 fL (81.4-99.0); RED BLOOD CELL COUNT 2.56 M/uL (4.14-5.76); WHITE BLOOD CELL COUNT,WBC 4.7 K/uL (3.2-11.0)
[2022-12-13 06:01] LABS: ANION GAP 9.3 mmol/L (5.0-14.0); CALCIUM 7.8 mg/dL (8.5-10.1); CREATININE 1.9 mg/dL (0.8-1.3); EST CRCL DRUG DOSING (CG) 32.62 mL/min; POTASSIUM,K 4.3 mmol/L (3.6-5.2)
[2022-12-13] MEDS: Magnesium Oxide 400 MG Tab PO SCH ×2 (08:19→21:50)
[2022-12-13] MEDS: Aspirin 81 MG Tab.EC PO SCH (08:19)
[2022-12-13] MEDS: Propranolol 60 MG Cap.ER PO SCH (08:19)
[2022-12-13] MEDS: Bacitracin Oint 1 GM U/D Packet TOP SCH (08:19)
[2022-12-13] MEDS: Pantoprazole 40 MG Tab.CR PO SCH ×2 (08:19→17:07)
[2022-12-13] MEDS: INSULIN DEGLUDEC 100 UNIT/ML SQ SCH (08:20)
[2022-12-13] MEDS: Insulin Lispro 100 Unit/ML 3 ML KwikPen SUBCUT SCH ×4 (08:21→21:49)
[2022-12-13] MEDS: atorvaSTATin 10 MG Tab PO SCH (21:50)
[2022-12-14 05:45] LABS: HEMATOCRIT 25.1 % (38.4-49.7); HEMOGLOBIN 8.7 g/dL (12.9-16.9); MEAN CORPUSCULAR HEMOGLOBIN 31.6 pg (31.6-35.5); MEAN CORPUSCULAR HGB CONC 34.7 g/dL (31.6-35.5); MEAN CORPUSCULAR VOLUME 91.3 fL (81.4-99.0); RED BLOOD CELL COUNT 2.75 M/uL (4.14-5.76); WHITE BLOOD CELL COUNT,WBC 3.8 K/uL (3.2-11.0)
[2022-12-14 06:07] LABS: CALCIUM 7.9 mg/dL (8.5-10.1); CREATININE 1.6 mg/dL (0.8-1.3); EST CRCL DRUG DOSING (CG) 38.74 mL/min; POTASSIUM,K 4.5 mmol/L (3.6-5.2)
[2022-12-14 06:08] LABS: ANION GAP 11.5 mmol/L (5.0-14.0)
[2022-12-14] MEDS: Insulin Lispro 100 Unit/ML 3 ML KwikPen SUBCUT SCH (08:14)
[2022-12-14] MEDS: Pantoprazole 40 MG Tab.CR PO SCH (08:15)
[2022-12-14] MEDS: Magnesium Oxide 400 MG Tab PO SCH (08:15)
[2022-12-14] MEDS: Bacitracin Oint 1 GM U/D Packet TOP SCH (08:15)
[2022-12-14] MEDS: Aspirin 81 MG Tab.EC PO SCH (08:15)
[2022-12-14] MEDS: Propranolol 60 MG Cap.ER PO SCH (08:15)
[2022-12-14] MEDS: INSULIN DEGLUDEC 100 UNIT/ML SQ SCH (10:46)
[2022-12-15] MEDS ORDERED: DULAGLUTIDE 4.5 MG/0.5 ML SQ SCH (09:00)
== END 2022-12-14 11:20 | disposition home or self-care (01) | DRG 683 ==
LOC: JP.ED 09:31 → JP.ICU 11:36
PROVIDERS: ADMIT Hospitalist; ATTEND Internal Medicine
PROC: 30233N1 Transfusion of Nonautologous Red Blood Cells into Peripheral Vein, Percutaneous Approach (ICD-10-PCS; principal; 2022-12-11)
PROC: 0DD48ZX Extraction of Esophagogastric Junction, Via Natural or Artificial Opening Endoscopic, Diagnostic (ICD-10-PCS; 2022-12-12)
DX: N17.9 Acute kidney failure, unspecified (principal); E87.20 Acidosis, unspecified; L97.429 Non-pressure chronic ulcer of left heel and midfoot with unspecified severity; D64.9 Anemia, unspecified; M25.561 Pain in right knee; M25.562 Pain in left knee; R07.81 Pleurodynia; M25.551 Pain in right hip; E11.9 Type 2 diabetes mellitus without complications; E86.0 Dehydration; D64.89 Other specified anemias; E87.5 Hyperkalemia; E78.00 Pure hypercholesterolemia, unspecified; Z20.822 Contact with and (suspected) exposure to COVID-19; E11.42 Type 2 diabetes mellitus with diabetic polyneuropathy; E11.621 Type 2 diabetes mellitus with foot ulcer; Z96.649 Presence of unspecified artificial hip joint; I10 Essential (primary) hypertension; K42.9 Umbilical hernia without obstruction or gangrene; Z79.82 Long term (current) use of aspirin; Z79.4 Long term (current) use of insulin; Z79.899 Other long term (current) drug therapy; Z90.49 Acquired absence of other specified parts of digestive tract; Z87.81 Personal history of (healed) traumatic fracture; Z98.890 Other specified postprocedural states; W01.0XXA Fall on same level from slipping, tripping and stumbling without subsequent striking against object, initial encounter
CPT/HCPCS: 36415; 70450; 71046; 71100; 73502; 73560; 80053; 82550; 83690; 83735; 85027; 86140; 86850; 86900; 86901; 86920 ×3; 86922 ×3; 93005; 93010; 94640; 96360; 99285 ×2; J1815; J7030 ×2; 36430; 76770; 80048; 82607; 82728; 82746; 82947; 83550; 83615; 84132; 85018; 85025; 85045; 97116-GP; 97162-GP; 99222; 99232; 99238; A9270-GY; C9113; J2704; J3475; P9016; U0002